=== PATIENT | female | born 1965 | race Caucasian/White ===

== ENCOUNTER → 2023-12-18 06:55 | Outpatient (REF) | payer OTHER, SELFPAY | LOC: RAD 06:55 | PROVIDERS: ATTENDING PHYSICIAN Internal Medicine Critical Care Medicine; FAMILY PHYSICIAN Nurse Practitioner | DX: R05.3 Chronic cough (principal); M32.9 Systemic lupus erythematosus, unspecified | CPT/HCPCS: 71250 ==

== ENCOUNTER → 2023-12-27 14:26 | Outpatient (REF) | payer OTHER, SELFPAY | LOC: PAVMRI 14:26 | PROVIDERS: ATTENDING PHYSICIAN Student in an Organized Health Care Education/Training Program; FAMILY PHYSICIAN Nurse Practitioner | DX: I63.9 Cerebral infarction, unspecified (principal) | CPT/HCPCS: 70544; 70549; A9585 ==

== ENCOUNTER → 2024-03-06 09:57 | Outpatient (REF) | payer OTHER, SELFPAY | LOC: WDC 09:57 | PROVIDERS: ATTENDING PHYSICIAN Nurse Practitioner Adult Health; FAMILY PHYSICIAN Nurse Practitioner | DX: N63.10 Unspecified lump in the right breast, unspecified quadrant (principal) | CPT/HCPCS: 76642; 77062; 77066 ==

== ENCOUNTER → 2024-05-12 07:54 | Outpatient (REF) | payer OTHER, SELFPAY | LOC: WDC 07:54 | PROVIDERS: ATTENDING PHYSICIAN Nurse Practitioner Adult Health; FAMILY PHYSICIAN Nurse Practitioner | DX: R92.8 Other abnormal and inconclusive findings on diagnostic imaging of breast (principal) | CPT/HCPCS: 76642 ==

== ENCOUNTER → 2024-06-27 08:20 | Outpatient (REF) | payer OTHER, SELFPAY ==
[2024-06-27 06:00] VITALS: BMI 40.1
[2024-06-27 08:59] VITALS: BP 117/68; BP_SYST 97
[2024-06-27] MEDS: VANCOCIN 200 IV (10:55)
[2024-06-27 11:40] VITALS: BP 115/63; BP_SYST 90
== END ==
LOC: RADI 08:20
PROVIDERS: ATTENDING PHYSICIAN Internal Medicine Rheumatology; FAMILY PHYSICIAN Nurse Practitioner
DX: M06.9 Rheumatoid arthritis, unspecified (principal)
CPT/HCPCS: 36561; 76937; 77001; 99152; 99153; C1788

== ENCOUNTER 2024-08-04 08:27 | Day surgery (SDC) | payer OTHER, SELFPAY ==
[2024-08-04 08:47] VITALS: BP 114/65
[2024-08-04 08:53] VITALS: BP 114/65
[2024-08-04 09:16] VITALS: BMI 41.5
[2024-08-04 11:53] VITALS: BP 110/64
[2024-08-04 12:08] VITALS: BP 104/51
[2024-08-04 12:22] VITALS: BP 113/63
--- NOTE | 2024-08-04 12:24 | ITS.CL.IMPLP ---
[facility] - Implant Loop
Implant Loop
Procedure Report:
LINQ IMPLANTED MONITOR REMOVAL
Date of Procedure: 08/04/24
Primary Care Provider: MARIUSZ Bhakta
Primary fruit press operator: Dr Partha Holguin
PROCEDURES:
1. Removal of implanted loop recorder
INDICATION FOR PROCEDURE:
1. Loop Recorder at end of battery longevity
After informed consent was obtained,'time out' was called and confirmed, the patient was prepped and draped in a sterile fashion.
SEDATION: Via the anesthesia department with conscious sedation
Lidocaine with epi was used for local anesthesia. An incision was made along the prior incision and the Linq monitor was carefully dissected from the pocket. The pocket was liberally irrigated with antibiotic solution. The pocket was closed in
the typical fashion.
COMPLICATIONS:
None
CONCLUSIONS:
1. Removal of implanted loop recorder.
RECOMMENDATIONS:
In-Office wound check in 7-14 days.
Copy to:
MARIUSZ Bhakta
Dr Partha Holguin
== END 2024-08-04 12:53 | disposition home or self-care (01) ==
LOC: CATH 08:27
PROVIDERS: ATTENDING PHYSICIAN Internal Medicine Cardiovascular Disease; FAMILY PHYSICIAN Nurse Practitioner; OTHER PHYSICIAN Nuclear Medicine Nuclear Cardiology
DX: Z09 Encounter for follow-up examination after completed treatment for conditions other than malignant neoplasm (principal); Z86.73 Personal history of transient ischemic attack (TIA), and cerebral infarction without residual deficits; I10 Essential (primary) hypertension; E78.5 Hyperlipidemia, unspecified; K21.9 Gastro-esophageal reflux disease without esophagitis; Z79.82 Long term (current) use of aspirin
CPT/HCPCS: 33286

== ENCOUNTER → 2024-09-05 07:13 | Outpatient (REF) | payer MEDICARE, OTHER, SELFPAY ==
[2024-09-05 08:11] LABS: % Basophils 1.9 % (0-2); % Eosinophils 8.7 % (0-6); % Immature Granulocytes 0.4 % (0-0.5); % Lymphocytes 28.4 % (20.5-51.1); % Monocytes 18.9 % (1.7-9.3); % Neutrophils 41.7 % (42.2-75.2); Absolute Basophils 0.1 10^3/uL (0-0.2); Absolute Eosinophils 0.2 10^3/uL (0-0.7); Absolute Lymphocytes 0.8 10^3/uL (1.2-3.4); Absolute Monocytes 0.5 10^3/uL (0.1-0.6); Absolute Neutrophils 1.1 10^3/uL (1.4-6.5); Hematocrit 40.9 % (37.0-47.0); Hemoglobin 14.3 g/dL (12.0-16.0); Mean Corpuscular Hgb 33.4 pg (27.0-31.0); Mean Corpuscular Volume 95.6 fL (81.0-99.0); Mean Platelet Volume 9.1 fL (7.4-10.4); Nucleated Red Blood Cells % 0 %; Platelet Count 189 10^3/uL (130-400); Red Blood Cell Count 4.28 10^6/uL (4.20-5.40); Red Cell Dist. Width 13.1 % (11.5-14.5); White Blood Cell Count 2.6 10^3/uL (4.8-10.8)
[2024-09-05 08:54] LABS: C-Reactive Protein < 5.00 mg/L (0.0-10.00)
[2024-09-05 08:57] LABS: ALT (SGPT) 32 U/L (0-35); AST (SGOT) 26 U/L (14-36); Alkaline Phosphatase 67 U/L (38-126); Blood Urea Nitrogen 23 mg/dl (7-17); Calcium 9.2 mg/dl (8.4-10.2); Carbon Dioxide 26 mmol/L (22-30); Chloride 106 mmol/L (98-107); Glucose 98 mg/dl (70-99); HDL Cholesterol 76 mg/dl; LDL Cholesterol, Calculated 89 mg/dl; Potassium 4.1 mmol/L (3.5-5.1); Sodium 141 mmol/L (135-145); Total Bilirubin 0.8 mg/dl (0.2-1.3); Total Cholesterol 190 mg/dl (50-199); Total Protein 6.4 g/dl (6.3-8.2); Triglyceride 126 mg/dl (10-149); Very Low Density Lipoprotein 25 mg/dl (0-30); eGFR > 60.00
[2024-09-05 09:00] LABS: Erythrocyte Sed Rate 8 mm/hour (0-20)
[2024-09-07 07:38] LABS: ANA, IgG Reflex to HEp-2 None Detected (None Detected)
[2024-09-07 15:58] LABS: IgE 55 kU/L (<=214)
[2024-09-07 15:59] LABS: Aspergillus fumigatus <0.10 kU/L (<=0.34); Bermuda Grass <0.10 kU/L (<=0.34); Birch Tree <0.10 kU/L (<=0.34); Box Elder/Maple Tree <0.10 kU/L (<=0.34); Cat Epithelium/Dander <0.10 kU/L (<=0.34); Common Pigweed <0.10 kU/L (<=0.34); Common/Short Ragweed <0.10 kU/L (<=0.34); Cottonwood Tree <0.10 kU/L (<=0.34); Dermatophagoides farinae <0.10 kU/L (<=0.34); Dermatophagoides pteronyssinus <0.10 kU/L (<=0.34); Dog Dander <0.10 kU/L (<=0.34); Elm Tree <0.10 kU/L (<=0.34); German Cockroach <0.10 kU/L (<=0.34); Hormodendrum <0.10 kU/L (<=0.34); IgE 55 kU/L (<=214); Mountain Cedar Tree <0.10 kU/L (<=0.34); Mouse Epithelium <0.10 kU/L (<=0.34); Mucor racemosus <0.10 kU/L (<=0.34); Mugwort Weed <0.10 kU/L (<=0.34); Oak Tree <0.10 kU/L (<=0.34); Penicillium notatum <0.10 kU/L (<=0.34); Sheep Sorrel Weed <0.10 kU/L (<=0.34); Sycamore Tree <0.10 kU/L (<=0.34); Timothy Grass 0.11 kU/L (<=0.34); Walnut Tree <0.10 kU/L (<=0.34); White Ash Tree <0.10 kU/L (<=0.34); White Mulberry Tree <0.10 kU/L (<=0.34)
[2024-09-07 17:14] LABS: ds-DNA Ab, IgG Reflex To Titer 3 IU (0-24)
[2024-09-07 18:56] LABS: Quantiferon Mitogen minus NIL 4.53 IU/mL; Quantiferon NIL 0.06 IU/mL; Quantiferon TB Gold Plus Negative (Negative)
[2024-09-08 07:26] LABS: Complement C3 99 mg/dl (88-165)
== END ==
LOC: REG 07:13
PROVIDERS: ATTENDING PHYSICIAN Nuclear Medicine Nuclear Cardiology; FAMILY PHYSICIAN Nurse Practitioner; OTHER PHYSICIAN Internal Medicine Rheumatology; REFERRING PHYSICIAN Internal Medicine Critical Care Medicine
DX: M06.09 Rheumatoid arthritis without rheumatoid factor, multiple sites (principal); M25.511 Pain in right shoulder; M32.9 Systemic lupus erythematosus, unspecified; M62.81 Muscle weakness (generalized); M70.61 Trochanteric bursitis, right hip; M79.7 Fibromyalgia; Z51.81 Encounter for therapeutic drug level monitoring; Z86.73 Personal history of transient ischemic attack (TIA), and cerebral infarction without residual deficits; I10 Essential (primary) hypertension; R60.0 Localized edema; E78.5 Hyperlipidemia, unspecified; J45.909 Unspecified asthma, uncomplicated
CPT/HCPCS: 36415; 80053; 80061; 82785; 85025; 85652; 86003; 86038; 86140; 86160; 86225; 86480

== ENCOUNTER → 2024-11-04 07:37 | Outpatient (REF) | payer MEDICARE, OTHER, SELFPAY | LOC: WDC 07:37 | PROVIDERS: ATTENDING PHYSICIAN Nurse Practitioner Adult Health; FAMILY PHYSICIAN Nurse Practitioner | DX: R92.8 Other abnormal and inconclusive findings on diagnostic imaging of breast (principal) | CPT/HCPCS: 76642 ==

== ENCOUNTER 2024-12-16 02:54 | Inpatient (IN) | payer MEDICARE, OTHER, SELFPAY ==
[2024-12-15 17:09] VITALS: BP 195/124
--- NOTE | 2024-12-15 17:10 | ED.GENMED ---
ED Provider Triage
<John Izaguirre PA-C - Last Filed: 12/15/24 17:11>
-
Patient seen by provider in Triage?: Seen in Triage
Attestation: A medical screening examination has been initiated by a qualified medical provider. Based on the assessment performed at this time, it has been determined that an emergent medical condition may exist and the patient has been informed
that further medical evaluation and possible additional diagnostic testing may be needed.
HPI: 59-year-old female presenting to the emergency department for evaluation of lower abdominal pain that has been gradually worsening for about 1 week, associated with constipation. States has attempted [id number] remedies for the pain and
constipation but without any relief. Attempted to see her GI provider however did not hear back from them and was recommended to come to the ER if pain persisted. Patient reports pain is worse in the left lower abdomen. History of diverticular
bleed in the past. Labs and CT imaging ordered.
GENERAL: Alert , in no apparent distress
EYE: No visual abnormalities.
NECK: Trachea midline
ENT: No visible abnormalities.
LUNGS: No acute respiratory distress
NEUROLOGICAL: Alert and oriented
SKIN: Skin intact. No visible changes.
MUSCULOSKELETAL: Moving extremities normally
PSYCH: Normal and appropriate interaction.
This is a medical evaluation conducted in person to initiate diagnostic evaluation and provide initial therapeutics. Please see further documentation by the treating clinician.
History of Present Illness
<John Izaguirre PA-C - Last Filed: 12/15/24 17:11>
General
Chief Complaint: Abdominal Pain
Time Seen by Provider: 12/15/24 21:22
<Janet Luis DO - Last Filed: 12/16/24 00:21>
History of Present Illness
History of Present Illness:
59-year-old female with history of IBS, rheumatoid arthritis, fibromyalgia, lupus presenting to the emergency room for generalized abdominal pain. Patient reports symptoms for the past week. Does note that she has been constipated. Pain was
initially in the left lower quadrant of the abdomen and suprapubic region. However is now wrapping across the entire abdomen. Denies fever. Denies nausea or vomiting. Denies any history of abdominal surgeries in the past. Denies chest pain or
difficulty breathing. Does note rectal discomfort, particularly with sitting. Denies additional acute medical complaints
Past History
<John Izaguirre PA-C - Last Filed: 12/15/24 17:11>
Past History
ED Past Medical History: Asthma, GERD, HTN and Other (Fibromyalgia, elevated heart rate, GERD)
ED Past Surgical History: Other (Cellulitis release, right and left)
Social History
Tobacco: Non-smoker
Alcohol: None
Drug: None
Personal:
Living: with family
Phy Exam
<Janet Luis DO - Last Filed: 12/16/24 00:21>
Physical Exam
Physical Exam:
General: Well-appearing, no clinical signs of dehydration, nontoxic and in no acute distress
HEENT: protecting airway
Neck: appears supple
CV: Normal heart rate, regular rhythm
Resp: No accessory muscle use, no increased work of breathing, lungs clear to auscultation bilaterally
Abd: No distention, generalized nonfocal tenderness, no rebound or guarding
Extremities: No deformities, no swelling
Neuro: alert, no focal neurologic deficit
: deferred
Rectal: deferred
Psych: Normal affect
Skin: Intact
Course
<John Izaguirre PA-C - Last Filed: 12/15/24 17:11>
Orders/Labs/Results
Orders:
Orders
12/15/24 17:10
CT Abd/pelvis W Iv Cont Urgent
Comment:
Reason For Exam: lower abd pain/rectal pain. hx diverticulitis
Urinalysis Reflex To Culture Urgent
12/15/24 18:03
Complete Blood Count/With Diff Urgent
Comprehensive Metabolic Panel Urgent
Lipase Urgent
12/15/24 22:18
Ketorolac [Toradol] 15 mg IV NOW STA
12/15/24 22:29
Alteplase [Cathflo/Activase] 2 mg INTRACATH NOW STA
12/16/24 00:13
Amoxicillin 875 mg/Clav 125 mg [Augmentin 875 mg/125 mg] 1 tablet PO NOW STA
Morphine Sulfate 4 mg IV NOW STA
12/16/24 00:15
Heparin Pf [Heparin Lock Flush] 500 unit .ROUTE .STK-MED ONE
12/16/24 00:18
Piperacillin/Tazo 4.5 Gram [Zosyn] 4.5 gram in 100 ml IV NOW
Abnormal Lab Results
12/15/24
18:03
Hgb 16.6 H g/dL
(12.0-16.0)
Hct 48.8 H %
(37.0-47.0)
MCH 31.6 H pg
(27.0-31.0)
Absolute Lymphs (auto) 0.7 L 10^3/uL
(1.2-3.4)
Neutrophils % 82.9 H %
(42.2-75.2)
Lymphocytes % 10.7 L %
(20.5-51.1)
Glucose 152 H mg/dl
(70-99)
ALT 38 H U/L
(0-35)
12/15/24 18:03
12/15/24 18:03
Vital Signs
Initial and Last Documented VS:
Initial Vital Signs
Temp Pulse Resp BP Pulse Ox
98.1 F 106 20 195/124 99
12/15/24 17:09 12/15/24 17:09 12/15/24 17:09 12/15/24 17:09 12/15/24 17:09
Last Documented Vital Signs
Temp Pulse Resp BP Pulse Ox
98.9 F 102 18 178/103 97
12/15/24 19:00 12/15/24 19:00 12/15/24 21:42 12/15/24 19:00 12/15/24 19:00
<Janet Luis, DO - Last Filed: 12/16/24 00:21>
Orders/Labs/Results
Orders:
Orders
12/15/24 17:10
CT Abd/pelvis W Iv Cont Urgent
Comment:
Reason For Exam: lower abd pain/rectal pain. hx diverticulitis
Urinalysis Reflex To Culture Urgent
12/15/24 18:03
Complete Blood Count/With Diff Urgent
Comprehensive Metabolic Panel Urgent
Lipase Urgent
12/15/24 22:18
Ketorolac [Toradol] 15 mg IV NOW STA
12/15/24 22:29
Alteplase [Cathflo/Activase] 2 mg INTRACATH NOW STA
12/16/24 00:13
Amoxicillin 875 mg/Clav 125 mg [Augmentin 875 mg/125 mg] 1 tablet PO NOW STA
Morphine Sulfate 4 mg IV NOW STA
12/16/24 00:15
Heparin Pf [Heparin Lock Flush] 500 unit .ROUTE .STK-MED ONE
12/16/24 00:18
Piperacillin/Tazo 4.5 Gram [Zosyn] 4.5 gram in 100 ml IV NOW
Abnormal Lab Results
12/15/24
18:03
Hgb 16.6 H g/dL
(12.0-16.0)
Hct 48.8 H %
(37.0-47.0)
MCH 31.6 H pg
(27.0-31.0)
Absolute Lymphs (auto) 0.7 L 10^3/uL
(1.2-3.4)
Neutrophils % 82.9 H %
(42.2-75.2)
Lymphocytes % 10.7 L %
(20.5-51.1)
Glucose 152 H mg/dl
(70-99)
ALT 38 H U/L
(0-35)
12/15/24 18:03
12/15/24 18:03
Vital Signs
Initial and Last Documented VS:
Initial Vital Signs
Temp Pulse Resp BP Pulse Ox
98.1 F 106 20 195/124 99
12/15/24 17:09 12/15/24 17:09 12/15/24 17:09 12/15/24 17:09 12/15/24 17:09
Last Documented Vital Signs
Temp Pulse Resp BP Pulse Ox
98.9 F 102 18 178/103 97
12/15/24 19:00 12/15/24 19:00 12/15/24 21:42 12/15/24 19:00 12/15/24 19:00
<Janet Luis DO - Last Filed: 12/16/24 00:21>
MDM/Problems Addressed
MDM/Problems Addressed:
59-year-old female with history of fibromyalgia, rheumatoid arthritis, lupus, IBS presenting for lower abdominal pain. Vital signs on arrival are significant for high blood pressure.
On exam patient is resting comfortably, no acute distress. However generalized tenderness to lower abdomen, no rebound or guarding. Passively rule out acute intra-abdominal process such as obstruction versus infection. Flare of IBS is also
consideration. Plan for laboratory analysis and CT abdominal imaging. Toradol administered for pain
00:10 -CT shows acute diverticulitis with extraluminal air. No abscess formation. Given high risk nature, plan for IV antibiotics and admission. Morphine administered for pain. Patient agreeable to plan
<Janet Luis DO - Last Filed: 12/16/24 00:21>
*Critical Care Note
Total Time (30-74mins, 75-104mins- exclusive of procedures): Not Applicable
ED Attending Note
<John Izaguirre PA-C - Last Filed: 12/15/24 17:11>
-
Portions of this chart may have been created with voice recognition software.� Occasional wrong word or��sound alike� substitutions may have occurred due to the inherent limitations of voice recognition software.
Discharge Plan
Departure
Prescriptions:
No Action
pantoprazole 40 MG tablet,delayed release (DR/EC)
40 mg PO DAILY Qty: 30 0RF
Savella 100 MG tablet
200 mg PO BID
budesonide 0.5 mg/2 mL Suspension For Nebulization
0.5 mg INHALATION R DAILYPRN PRN (Reason: sob)
Patient Comments:
mixes with ipratropium
montelukast 10 mg Tablet
10 mg PO QPM
timolol maleate 0.5 % gel forming solution
1 drp BOTH EYES DAILY
aspirin 81 mg Tablet
81 mg PO QPM
Actemra 200 mg/10 mL (20 mg/mL) Solution
200 mg IV Q4W
atorvastatin 80 MG tablet
40 mg PO QPM
Referrals:
Chioma Levy CRNP [Family Provider] -
Interventions
Interventions:
*Risk Screen - Suicide Last Done: 12/15/24 22:04
*General Assessment Last Done: 12/15/24 17:09
*Neglect/Abuse Screening Last Done: 12/15/24 22:04
*ED COVID-19 Vaccine History Last Done: 12/15/24 21:41
UG-Tsgiri-Zgtqenqoao Assessment Last Done: 12/15/24 21:41
Discharge Date and Time
Print Language: TONGAN
[2024-12-15 18:28] LABS: % Basophils 0.2 % (0-2); % Immature Granulocytes 0.3 % (0-0.5); % Lymphocytes 10.7 % (20.5-51.1); % Monocytes 5.9 % (1.7-9.3); % Neutrophils 82.9 % (42.2-75.2); Absolute Lymphocytes 0.7 10^3/uL (1.2-3.4); Absolute Monocytes 0.4 10^3/uL (0.1-0.6); Absolute Neutrophils 5.3 10^3/uL (1.4-6.5); Hematocrit 48.8 % (37.0-47.0); Hemoglobin 16.6 g/dL (12.0-16.0); Mean Corpuscular Hgb 31.6 pg (27.0-31.0); Mean Corpuscular Volume 92.8 fL (81.0-99.0); Mean Platelet Volume 9.1 fL (7.4-10.4); Nucleated Red Blood Cells % 0 %; Platelet Count 200 10^3/uL (130-400); Red Blood Cell Count 5.26 10^6/uL (4.20-5.40); Red Cell Dist. Width 12.8 % (11.5-14.5); White Blood Cell Count 6.4 10^3/uL (4.8-10.8)
[2024-12-15 18:37] LABS: ALT (SGPT) 38 U/L (0-35); AST (SGOT) 33 U/L (14-36); Albumin 4.8 g/dl (3.5-5.0); Alkaline Phosphatase 72 U/L (38-126); Blood Urea Nitrogen 16 mg/dl (7-17); Calcium 9.4 mg/dl (8.4-10.2); Carbon Dioxide 22 mmol/L (22-30); Chloride 104 mmol/L (98-107); Glucose 152 mg/dl (70-99); Lipase 267 U/L (23-300); Potassium 4.1 mmol/L (3.5-5.1); Sodium 138 mmol/L (135-145); Total Protein 7.3 g/dl (6.3-8.2); eGFR > 60.00
[2024-12-15 19:00] VITALS: BP 178/103
[2024-12-15] MEDS: TORADOL 15 MG IV (22:22)
[2024-12-15] MEDS: CATHFLO/ACTIVASE 2 MG INTRACATH (23:10)
--- NOTE | 2024-12-15 23:40 | VATNOTE ---
2300-CONFIRMED LACK OF BR FROM R SUBQ PP. CAATHFLO INSTILLED PER PROTOCOL. PCN AWARE ON INTERVENTION AND PLAN OF CARE WELL PT AND AT BEDSIDE.
[2024-12-16] MEDS: MORPHINE SULFATE 4 MG IV (00:17)
[2024-12-16] MEDS: ZOSYN 100 IV (00:28)
--- NOTE | 2024-12-16 00:42 | VATNOTE ---
0040-RETURNED TO ASPIRATE CATHFLO FROM PRT-PCN HAD ALREADY ASPIRATED CATHFLO AND CONFIRMED A BRISK BR. IVF INFUSING ORDERED.
--- NOTE | 2024-12-16 02:44 | HPS.HSE ---
Family Physician
-
Family Physician: MARIUSZ Villa
Chief Complaint
-
Abd Pain
History of Present Illness
Patient is a 59y F with PMH significant for RA, lupus asthma and prior CVA who presents to ED complaining of abdominal pain. Patient states that she started with low back pain early last week. She developed change in consistency / shape of
stools on and noted development of LLQ abdominal pain on Sunday. Symptoms have increased throughout the weekend. No fevers / chills, N/V/D, urinary complaints. No prior history of similar symptoms.
Patient is on infusions of Actemra and Fasenra (received this dose earlier today).
Medical History
Past Medical History
Past Medical History: Reports Other
Additional Past Medical History:
ASCVD / CVA
Hypertension
Rheumatoid Arthritis
Lupus
Asthma
TED on CPAP
Past Surgical History: Reports Other
Additional Past Surgical History:
Lumbar Fusion
Bilateral TKA
Trigger Finger
Port Placement
Social History
Tobacco: Non-smoker
Alcohol: None
Drug: None
Family History
Family History: Not pertinent
Allergies / Home Medications
Allergies reflects when Allergies were last updated in [facility].
Home Medications with original date entered in [facility]
Allergy/Medication List:
Allergies
Allergy/AdvReac Type Severity Reaction Status Date / Time
cefadroxil [From Duricef] Allergy Rash Verified 12/15/24 17:09
celecoxib [From Celebrex] Allergy Rash Verified 12/15/24 17:09
latex Allergy Rash, Verified 12/15/24 17:09
itching
pollen extracts Allergy stuffy nose Verified 12/15/24 17:09
Sulfa (Sulfonamide Allergy Rash Verified 12/15/24 17:09
Antibiotics)
sulfur dioxide Allergy Rash Verified 12/15/24 17:09
tramadol HCl [From Ultracet] Allergy Pharmacy Verified 12/15/24 17:09
to Review
Home Medications
budesonide 0.5 mg/2 mL suspension for nebulization 0.5 mg inhalation R DAILYPRN PRN sob 02/26/23
montelukast 10 mg tablet 10 mg PO QPM asthma 02/26/23
timolol maleate 0.5 % eye gel forming solution 1 drp BOTH EYES DAILY Eye Condition 04/24/23
aspirin 81 mg tablet 81 mg PO QPM 06/27/24
tocilizumab 200 mg/10 mL (20 mg/mL) intravenous solution (Actemra) 200 mg IV Q4W 06/27/24
atorvastatin 80 mg tablet 40 mg PO QPM 08/04/24
erythromycin 250 mg tablet 250 mg PO MOWEFR 12/16/24
hydroxychloroquine 200 mg tablet (Plaquenil) 200 mg PO BID 12/16/24
Review of Systems
-
History Source: Patient
A 12 point ROS was completed and negative except as noted: Yes
Constitutional: Denies Fever or Chills
Respiratory: Denies Cough or Trouble Breathing
Cardiac: Reports Chest Pain; Denies Palpitations
Abdomen/GI: Reports Abdominal Pain; Denies Nausea, Vomiting, Diarrhea, Constipated, Bloody Stools or Black Stools
: Denies Dysuria, Frequency or Flank Pain
Musculoskeletal: Denies Joint Pain or Edema
Neurological: Denies Dizzy or Headache
Physical Exam
Vital Signs
Vital Signs
Temp Pulse Resp BP Pulse Ox
98.9 F 102 18 178/103 97
12/15/24 19:00 12/15/24 19:00 12/15/24 21:42 12/15/24 19:00 12/15/24 19:00
Physical Exam
General: Other (59y F in mild distress due to abdominal pain.)
HEENT: Moist mucous membranes and PERRLA
Respiratory: Clear; No Wheezes, Rales or Rhonchi
Cardiac: S1/S2 and Regular Rhythm; No Murmur
GI: Soft, Non Distended and Other (Diffusely / mildly tender without rebound / guarding. Pos BS.)
Musculoskeletal: No Clubbing, No Cyanosis and No Edema
Neuro: AO x 3
Laboratory Results
-
12/15/24 18:03
12/15/24 18:03
Laboratory Results
Total Bilirubin 1.0 mg/dl (0.2-1.3) 12/15/24 18:
AST 33 U/L (14-36) 12/15/24 18:
ALT 38 U/L (0-35) H 12/15/24 18:
Alkaline Phosphatase 72 U/L (38-126) 12/15/24 18:
Lipase 267 U/L (23-300) 12/15/24 18:03
Impression/Plan
-
A/P: Patient is a 59y F with PMH significant for RA / Lupus on chronic immunosuppressants who presents to ED complaining of abdominal pain x several days.
Acute Sigmoid Diverticulitis
- Admit for further evaluation and treatment.
- IV abx, IVFs, pain control, etc.
- Colorectal Surgery evaluation.
- Follow for clinical improvement.
Benign Hypertension
- Elevated BP in the ED likely in part due to pain / discomfort.
- Pursue pain control as noted above.
- IV hydralazine as needed for very high BP.
- May need oral regimen if hypertension persists (was on BP medications years ago).
Rheumatoid Arthritis
Lupus
- Stable. On outpatient infusions / injections.
- Continue current Plaquenil.
- Follow for any changes.
Asthma
- Stable. No acute exacerbation.
Obesity due to excess calories
- Affects all aspects of care.
- Encourage healthy diet and increased activity with goal of weight loss.
DVT Prophylaxis: SCDs
Code Status: Full
[2024-12-16] MEDS: DILAUDID 0.5 MG IV ×5 (03:32→23:33)
[2024-12-16 03:48] VITALS: BP 126/79
[2024-12-16] MEDS: LR 1000 IV ×3 (03:52→22:54)
[2024-12-16 07:11] LABS: Hematocrit 42.4 % (37.0-47.0); Hemoglobin 14.7 g/dL (12.0-16.0); Mean Corp Hgb Conc. 34.7 g/dL (33.0-37.0); Mean Corpuscular Hgb 32.7 pg (27.0-31.0); Mean Corpuscular Volume 94.2 fL (81.0-99.0); Mean Platelet Volume 8.9 fL (7.4-10.4); Platelet Count 159 10^3/uL (130-400); White Blood Cell Count 9.6 10^3/uL (4.8-10.8)
[2024-12-16 07:23] LABS: Blood Urea Nitrogen 17 mg/dl (7-17); Calcium 8.4 mg/dl (8.4-10.2); Carbon Dioxide 27 mmol/L (22-30); Chloride 104 mmol/L (98-107); Glucose 120 mg/dl (70-99); Potassium 3.7 mmol/L (3.5-5.1); Sodium 140 mmol/L (135-145); eGFR > 60.00
[2024-12-16 07:24] LABS: Troponin I < 0.012 ng/ml
[2024-12-16] MEDS: PLAQUENIL 200 MG PO ×2 (09:51→13:12)
[2024-12-16] MEDS: LOW STRENGTH ASPIRIN 81 MG PO (09:51)
[2024-12-16] MEDS: TIMOPTIC 0.5% OPHTHALMIC SOLUTION 1 DROP BOTH EYES ×2 (10:00→19:34)
--- NOTE | 2024-12-16 10:06 | CON.CRS ---
Consultation
-
Date/Time Consultation Requested: 12/16/2024, 03:14
Date/Time Consultation Performed: 12/16/2024, 08:30
Requesting Provider: Khadar Lee DO
Performing Provider: [place] MD
Reason for Consultation: diverticulitis
Medical History
-
Chief Complaint: abdominal pain
History of Present Illness:
59-year-old female with history of lupus and rheumatoid arthritis presents to [facility] yesterday evening complaining of abdominal pain. The patient states that she had symptoms of lower abdominal pain for the past several days which worsened
throughout last weekend. She was in so much pain yesterday that her called the ambulance. Her stools have become more pencillike and quality recently and she has been experiencing extreme rectal pressure as well as bilateral lower
abdominal pain. She denies fevers or chills. She denies nausea or vomiting. She has not had a bowel movement in the past 24 hours.
Due to lupus and rheumatoid arthritis, she is currently on infusions of Actemra and Fasenra. Her last doses were early yesterday.
She has a prior history of a diverticular hemorrhage in 2022 and underwent a NOREEN arterial graft a by IR which showed a small area of hyperemia at the junction of the descending and sigmoid colon likely corresponding with prior bleeding. However,
due to no active extravasation, it was not coiled. At that time she had been on Plavix. She then underwent a colonoscopy following the IR procedure by Dr. Riggs which showed diverticulosis in the sigmoid colon with no evidence of bleeding. She
was then discharged.
The patient denies a prior history of diverticulitis in the past. She has undergone no abdominal surgery. Currently she is only on aspirin [address] of the abdomen and pelvis shows diverticulitis involving the sigmoid colon and the central pelvis with adjacent foci of contained extraluminal air in the pelvis with no evidence for abscess and no evidence of free intraperitoneal air. Her WBC
was 6.4 on arrival and is 9.6 today. She remains afebrile and her vitals are normal. Given the above findings complicated with use of immunologic's, we have been consulted for further surgical opinion.
Past Medical History
Past Medical History: Other (Lupus, rheumatoid arthritis, CVA, hypertension, asthma, obstructive sleep apnea)
Past Surgical History: Other (Lumbar fusion, bilateral TKA,'s finger surgery repair, port placement)
Social History
Tobacco: Non-Smoker
Alcohol: None
Drug: None
Family History
Family History: Reviewed & Not Pertinent
Allergies / Home Medications
Allergy/AdvReac Type Severity Reaction Status Date / Time
cefadroxil [From Duricef] Allergy Rash Verified 12/15/24 17:09
celecoxib [From Celebrex] Allergy Rash Verified 12/15/24 17:09
latex Allergy Rash, Verified 12/15/24 17:09
itching
pollen extracts Allergy stuffy nose Verified 12/15/24 17:09
Sulfa (Sulfonamide Allergy Rash Verified 12/15/24 17:09
Antibiotics)
sulfur dioxide Allergy Rash Verified 12/15/24 17:09
tramadol HCl [From Ultracet] Allergy Pharmacy Verified 12/15/24 17:09
to Review
�Medication �Instructions �Recorded �Confirmed �Type
budesonide 0.5 mg/2 mL suspension 0.5 mg inhalation R DAILYPRN PRN 02/26/23 12/16/24 History
for nebulization sob
montelukast 10 mg tablet 10 mg PO QPM asthma 02/26/23 12/16/24 History
timolol maleate 0.5 % eye gel 1 drp BOTH EYES DAILY Eye Condition 04/24/23 12/16/24 History
forming solution
aspirin 81 mg tablet 81 mg PO QPM 06/27/24 12/16/24 History
tocilizumab 200 mg/10 mL (20 200 mg IV Q4W 06/27/24 12/16/24 History
mg/mL) intravenous solution
(Actemra)
atorvastatin 80 mg tablet 40 mg PO QPM 08/04/24 12/16/24 History
erythromycin 250 mg tablet 250 mg PO MOWEFR 12/16/24 12/16/24 History
hydroxychloroquine 200 mg tablet 200 mg PO BID 12/16/24 12/16/24 History
(Plaquenil)
Review of Systems
-
History Source: Patient
Abdomen/GI: Abdominal Pain
A 10 point review of systems was completed, and was negative except as per HPI.
Physical Exam
Vital Signs
Temp 98.9 F 12/15/24 19:00
Pulse 90 12/16/24 05:15
Resp Rate 18 12/16/24 05:15
Blood pressure 126/79 12/16/24 03:48
SaO2 97 12/15/24 19:00
12/15/24 12/16/24 12/17/24
06:59 06:59 06:59
Actual Weight 113.5 kg 113.5 kg
Lab Results / Allergies
12/16/24 06:44
12/16/24 06:44
WBC 9.6 10^3/uL (4.8-10.8) 12/16/24 06:44
Hgb 14.7 g/dL (12.0-16.0) 12/16/24 06:44
Hct 42.4 % (37.0-47.0) 12/16/24 06:44
Plt Count 159 10^3/uL (130-400) D 12/16/24 06:44
Abs Immat Gran (auto) 0.0 10^3/uL (0-0.05) 12/15/24 18:03
Neutrophils % 82.9 % (42.2-75.2) H 12/15/24 18:03
Allergy/AdvReac Type Severity Reaction Status Date / Time
cefadroxil [From Duricef] Allergy Rash Verified 12/15/24 17:09
celecoxib [From Celebrex] Allergy Rash Verified 12/15/24 17:09
latex Allergy Rash, Verified 12/15/24 17:09
itching
pollen extracts Allergy stuffy nose Verified 12/15/24 17:09
Sulfa (Sulfonamide Allergy Rash Verified 12/15/24 17:09
Antibiotics)
sulfur dioxide Allergy Rash Verified 12/15/24 17:09
tramadol HCl [From Ultracet] Allergy Pharmacy Verified 12/15/24 17:09
to Review
Physical Exam
General: Well Developed, Well Nourished and No Apparent Distress
GI: Soft and Tender (Left lower quadrant, moderate)
Skin: Warm and Dry
Neuro: AO x 3
Psych: Calm
Data Reviewed
-
CT Scan: Image Personally Visualized and interpreted, Report Reviewed by me and Discussed with Patient
Labs: Labs Reviewed by me, Discussed with Physician and Discussed with Family
Old Records: Reviewed
Assessment / Plan
-
Assessment: 59-year-old female with a significant past medical history for rheumatoid arthritis and lupus currently on immunologic's presents to the ER complaining of lower abdominal pain and found to have sigmoid diverticulitis
Plan:
-No plans for immediate surgery, however, it is worrisome given the tenderness on exam and the use of immunologic's. Will follow exam closely. Discussed with patient that if she worsens, she will require a colectomy with colostomy creation.
-Recommend n.p.o. at this time
-Continue IV fluids
-Continue IV antibiotics
-Will follow
[2024-12-16] MEDS: ZOSYN 50 IV ×3 (10:54→21:28)
[2024-12-16 11:32] LABS: Urine Albumin Trace (Neg - Trace); Urine Bilirubin Negative (Negative); Urine Character Clear (Clear); Urine Color Yellow; Urine Glucose Negative (Negative); Urine Ketone Trace (Negative); Urine Leukocyte Trace (Negative); Urine Nitrite Negative (Negative); Urine Occult Blood Negative (Negative); Urine Urobilinogen Negative (Neg - 1+)
[2024-12-16 12:07] VITALS: BP 120/82
[2024-12-16 13:32] LABS: Urine Squamous Cell 16-20 /LPF (Few)
[2024-12-16 13:33] LABS: Urine Red Blood Cell 0-2 /HPF (0-2); Urine White Cell 0-2 /HPF (0-5)
--- NOTE | 2024-12-16 14:54 | W.PN.UPDATE ---
Update Note
Progress Note Update
Clears, IV fluids, IV antibiotics
Conservative care for now
Colorectal surgery recommendations, if does not improve then will need sigmoidectomy with colostomy
[2024-12-16] MEDS: LIPITOR 40 MG PO (18:23)
[2024-12-16] MEDS: SINGULAIR 10 MG PO (18:23)
[2024-12-16 18:29] VITALS: BP 110/94
[2024-12-16 22:30] VITALS: BP 157/104
--- NOTE | 2024-12-16 23:58 | PTCARENOTE ---
22:20pt rec;vd from ER,aaox3,ambulates to restroom +void. RCW SQ port with LR infusing at 100ml/hr,tele applied, oriented to unit.
[2024-12-17 01:34] VITALS: BP 102/50
[2024-12-17] MEDS: ZOSYN 50 IV ×4 (03:20→21:55)
[2024-12-17] MEDS: DILAUDID 0.5 MG IV ×3 (03:27→20:23)
--- NOTE | 2024-12-17 04:25 | VATNOTE ---
PT WITH AREA OF REDNESS AND SLIGHTLY RAISED SMALL RED PATCHES BENEATH LATERAL ASPECT OF PRT DRSG. PT REPORTS HAVING VERY SENSITIVE SKIN AND ISSUES WITH DRSGS AND TAPE. RD PER PROTOCOL WITH SKIN BARRIER AND SURESITE DRSG, AVOIDING AFFECTED AREA
MUCH POSSIBLE. PT REPORTS SOME IMPROVEMENT IN HER COMFORT. ICE BAG ALSO APPLIED AT PT REQUEST FOR HER COMFORT. VAT TO FOLLOW.
[2024-12-17 04:39] LABS: Hematocrit 41.7 % (37.0-47.0); Hemoglobin 13.9 g/dL (12.0-16.0); Mean Corp Hgb Conc. 33.3 g/dL (33.0-37.0); Mean Corpuscular Volume 95.9 fL (81.0-99.0); Platelet Count 166 10^3/uL (130-400); Red Blood Cell Count 4.35 10^6/uL (4.20-5.40); Red Cell Dist. Width 13.1 % (11.5-14.5); White Blood Cell Count 10.3 10^3/uL (4.8-10.8)
[2024-12-17 05:14] LABS: ALT (SGPT) 24 U/L (0-35); AST (SGOT) 21 U/L (14-36); Albumin 3.4 g/dl (3.5-5.0); Alkaline Phosphatase 66 U/L (38-126); Blood Urea Nitrogen 16 mg/dl (7-17); Calcium 8.3 mg/dl (8.4-10.2); Carbon Dioxide 26 mmol/L (22-30); Chloride 103 mmol/L (98-107); Estimated Creatinine Clearance 88 ml/min; Glucose 106 mg/dl (70-99); Potassium 3.7 mmol/L (3.5-5.1); Sodium 136 mmol/L (135-145); Total Bilirubin 1.3 mg/dl (0.2-1.3); Total Protein 5.7 g/dl (6.3-8.2); eGFR > 60.00
[2024-12-17 07:20] VITALS: BP 153/86
[2024-12-17] MEDS: PLAQUENIL 400 MG PO (08:10)
[2024-12-17] MEDS: LOW STRENGTH ASPIRIN 81 MG PO (08:10)
[2024-12-17] MEDS: TIMOPTIC 0.5% OPHTHALMIC SOLUTION 1 DROP BOTH EYES (08:12)
--- NOTE | 2024-12-17 10:30 | W.PN.CRS1 ---
Today's Communication / Plan
-
full liquids
follow exam
cont IV abx
Assessment/Plan
-
Assessment: 59-year-old female with a significant past medical history for rheumatoid arthritis and lupus currently on immunologic's presents to the ER complaining of lower abdominal pain and found to have sigmoid diverticulitis
Plan:
-No plans for immediate surgery, however, it is worrisome given the tenderness on exam and the use of immunologic's. Will follow exam closely. Discussed with patient that if she worsens, she will require a colectomy with colostomy creation.
-Advance diet to full liquids
-Continue IV fluids
-Continue IV antibiotics
-Will follow
Subjective Data
Subjective Data
Date of Service: December 17, 2024
Patient states she feels 'about the same'. She is not having any gas or bowel movements yet. She is not hungry. She feels like she has lower abdominal pressure.
Objective Data
-
Vital Signs
Temp Pulse Resp BP Pulse Ox
98.2 F 101 16 153/86 96
12/17/24 07:20 12/17/24 07:20 12/17/24 07:20 12/17/24 07:20 12/17/24 07:20
Intake & Output
12/16/24 12/17/24 12/18/24
06:59 06:59 06:59
Intake Total 400 / 400 1070 / 1070 480 / 480
Balance 400 / 400 1070 / 1070 480 / 480
Intake:
Oral fluids 120 / 120 480 / 480
IV fluids (Total) 300 / 300 900 / 900
LR 300 / 300
IV piggybacks 100 / 100 50 / 50
LR 100 / 100
Other:
Number of unmeasured voidings 2
Number of approximated SMALL 2
amounts of urine
Number of approximated MODERATE 3
amounts of urine
Lab Results
12/17/24 03:54
12/17/24 03:54
Physical Exam
-
General: No Acute Distress and AOx3
Abdomen: Soft, Non Distended and Tender (Suprapubic)
Skin: Warm and Dry
[2024-12-17] MEDS: LR 1000 IV (10:40)
--- NOTE | 2024-12-17 12:12 | CM ---
Met with pt at bedside
Pt reports she lives with her in a 3 story town home; 3 steps to enter, 12 steps to 2nd fl. + 1/2 bath on FF
Independent at baseline, on disability, drives
DME - CPAP with [employer], nebulizer, wheel chair, rolling walker, single point cane
SNF - no past hx
HH - has had in past - unsure of agency
Has ride at discharge
PCP - Chioma Vaca
Pharm - [facility]
Plan - anticipate home no needs
[2024-12-17 12:15] VITALS: BP 117/73
--- NOTE | 2024-12-17 13:14 | W.PN.HOSP.TC ---
Today's Communication/Plan
-
CLD
IVF, Abx
dvt ppx
Assessment / Plan
Assessment / Plan
Physical Exam
General: Other (59y F in mild distress due to abdominal pain.Improved from yesterday)
HEENT: Moist mucous membranes and PERRLA
Respiratory: Clear; No Wheezes, Rales or Rhonchi
Cardiac: S1/S2 and Regular Rhythm; No Murmur
GI: Soft, Non Distended and Other (Diffusely / mildly tender without rebound / guarding. Improved from yest although still present. Pos BS.)
Musculoskeletal: No Clubbing, No Cyanosis and No Edema
Neuro: AO x 3
A/P: Patient is a 59y F with PMH significant for RA / Lupus on chronic immunosuppressants who presents to ED complaining of abdominal pain x several days.
Acute Sigmoid Diverticulitis
- Admit for further evaluation and treatment.
- IV abx, IVFs, pain control, etc.
- Colorectal Surgery evaluation.
- Follow for clinical improvement. - If no improvement - will need colectomy with colostomy in setting of exam findings and use of Biologics
-Adv to FLD
Benign Hypertension
- Elevated BP in the ED likely in part due to pain / discomfort.
- Pursue pain control as noted above.
- IV hydralazine as needed for very high BP.
- bp under control
Rheumatoid Arthritis
Lupus
- Stable. On outpatient infusions / injections.
- Continue current Plaquenil.
- Follow for any changes.
Asthma
- Stable. No acute exacerbation.
Obesity due to excess calories
- Affects all aspects of care.
- Encourage healthy diet and increased activity with goal of weight loss.
DVT Prophylaxis: HSQ
Code Status: Full
Anticipated Discharge: > 48 hours
Subjective/Interval History
-
Date of Service: December 17, 2024
Pain improved although still present
Objective Data
-
Labs:
Laboratory Results
12/17/24
03:54
WBC 10.3
Hgb 13.9
Hct 41.7
Plt Count 166
Sodium 136
Potassium 3.7
Chloride 103
Carbon Dioxide 26
BUN 16
Creatinine 0.8
Glucose 106 H
Calcium 8.3 L
Total Bilirubin 1.3
AST 21
ALT 24
Alkaline Phosphatase 66
Vital Signs:
Vital Signs
Temp Pulse Resp BP Pulse Ox
98.2 F 87 18 117/73 95
12/17/24 12:15 12/17/24 12:15 12/17/24 12:15 12/17/24 12:15 12/17/24 12:15
I&O
12/16/24 12/17/24 12/18/24
06:59 06:59 06:59
Intake Total 400 / 400 1070 / 1070 480 / 480
Balance 400 / 400 1070 / 1070 480 / 480
Review of Systems
-
History Source: Patient
All other systems: Not reviewed unless documented
Data Reviewed
-
CT Scan: Report Reviewed by me
Labs: Labs Reviewed by me
[2024-12-17] MEDS: TYLENOL 650 MG PO (15:16)
[2024-12-17 15:24] VITALS: BP 138/77
--- NOTE | 2024-12-17 16:55 | PTCARENOTE ---
Pt to be transferred to rm [id number]. Report called to Nuzhat MATHIAS no questions.
[2024-12-17] MEDS: SINGULAIR 10 MG PO (17:09)
[2024-12-17] MEDS: LIPITOR 40 MG PO (17:09)
[2024-12-17 19:57] VITALS: BP 131/77
[2024-12-17] MEDS: HEPARIN 5000 UNITS SC (20:22)
[2024-12-17] MEDS: TIMOPTIC 0.5% OPHTHALMIC SOLUTION BOTH EYES (21:39)
[2024-12-17 23:09] VITALS: BP 130/80
[2024-12-18] VITALS (7 sets, daily range): BP systolic 115–149; BP diastolic 70–87
[2024-12-18] MEDS: TYLENOL 650 MG PO ×3 (02:58→20:43)
[2024-12-18] MEDS: ZOSYN 50 IV ×2 (02:59→10:54)
[2024-12-18] MEDS: DILAUDID 0.5 MG IV ×2 (03:40→08:29)
[2024-12-18 04:57] LABS: Hematocrit 41.4 % (37.0-47.0); Hemoglobin 14.1 g/dL (12.0-16.0); Mean Corp Hgb Conc. 34.1 g/dL (33.0-37.0); Mean Corpuscular Hgb 32.2 pg (27.0-31.0); Mean Corpuscular Volume 94.5 fL (81.0-99.0); Mean Platelet Volume 8.9 fL (7.4-10.4); Platelet Count 165 10^3/uL (130-400); Red Blood Cell Count 4.38 10^6/uL (4.20-5.40); Red Cell Dist. Width 12.8 % (11.5-14.5); White Blood Cell Count 8.2 10^3/uL (4.8-10.8)
[2024-12-18 05:21] LABS: ALT (SGPT) 21 U/L (0-35); AST (SGOT) 23 U/L (14-36); Albumin 3.5 g/dl (3.5-5.0); Alkaline Phosphatase 64 U/L (38-126); Blood Urea Nitrogen 11 mg/dl (7-17); Calcium 8.2 mg/dl (8.4-10.2); Carbon Dioxide 26 mmol/L (22-30); Chloride 105 mmol/L (98-107); Estimated Creatinine Clearance 101 ml/min; Glucose 104 mg/dl (70-99); Potassium 3.9 mmol/L (3.5-5.1); Sodium 138 mmol/L (135-145); Total Bilirubin 1.4 mg/dl (0.2-1.3); Total Protein 5.8 g/dl (6.3-8.2); eGFR > 60.00
[2024-12-18] MEDS: PLAQUENIL 400 MG PO (08:09)
[2024-12-18] MEDS: HEPARIN 5000 UNITS SC ×2 (08:09→20:32)
[2024-12-18] MEDS: LOW STRENGTH ASPIRIN 81 MG PO (08:10)
[2024-12-18] MEDS: TIMOPTIC 0.5% OPHTHALMIC SOLUTION 1 DROP BOTH EYES ×2 (08:16→20:32)
--- NOTE | 2024-12-18 08:44 | W.PN.CRS1 ---
Today's Communication / Plan
-
As below
Assessment/Plan
-
59-year-old female with PMH of rheumatoid arthritis and lupus (on 2 Biologics), CVA, HTN, asthma, TED (on CPAP), who presents with abdominal pain and was found to have diverticulitis with microperforation, being treated nonoperatively
AFVSS
WBC 8.2 from 10.3, Hb stable, CR 0.7
�Acute diverticulitis with microperforation, not improving or worsening
�Due to smoldering course, would attempt bowel rest with n.p.o., okay for p.o. meds and sips/chips
�No need for repeat CT today; no hemodynamic instability or worsening abdominal pain, continue nonoperative measures
�Continue IV antibiotics, recommend switching to IV ertapenem or IV Levaquin/Flagyl
�Continue pain control with Tylenol and Dilaudid as needed
� Continue DVT PPx with subQ heparin, consider switching to Lovenox due to weight
�Encourage OOB/IS
�Appreciate hospitalist
Subjective Data
Subjective Data
Date of Service: December 18, 2024
Not feeling worse but not feeling much better. Has abdominal pain if she moves or gets out of bed.
Denies any N/V, but has no appetite.
Abdominal pain somewhat controlled with pain medicine
Passing little bit of flatus, no BMs. Voiding.
Objective Data
-
Vital Signs
Temp Pulse Resp BP Pulse Ox
98.1 F 85 18 136/70 97
12/18/24 07:30 12/18/24 07:30 12/18/24 07:30 12/18/24 07:30 12/18/24 07:30
Intake & Output
12/17/24 12/18/24 12/19/24
06:59 06:59 06:59
Intake Total 1070 / 1070 1779
Balance 1070 / 1070 1779 / 178
Intake:
Oral fluids 120 / 120 1280 / 1280
IV fluids (Total) 900 / 900 500 / 500
IV piggybacks 50 / 50
Other:
Number of approximated SMALL 2
amounts of urine
Number of approximated MODERATE 4
amounts of urine
Lab Results
12/18/24 04:28
12/18/24 04:28
Physical Exam
-
General: No Acute Distress and AOx3
HEENT: Grossly Normal
Abdomen: Soft, Non Distended (Nondistended, protuberant) and Tender (Mildly to moderately tender in the epigastric region, otherwise minimally tender; no rebound or guarding)
Skin: Warm and Dry
[2024-12-18] MEDS: LR 1000 IV ×2 (09:26→17:13)
--- NOTE | 2024-12-18 13:16 | W.PN.HOSP.TC ---
Today's Communication/Plan
-
can switch to ertapanem
npo
Assessment / Plan
Assessment / Plan
Physical Exam
General: Other (59y F in mild distress due to abdominal pain.Improved from yesterday)
HEENT: Moist mucous membranes and PERRLA
Respiratory: Clear; No Wheezes, Rales or Rhonchi
Cardiac: S1/S2 and Regular Rhythm; No Murmur
GI: Soft, Non Distended and Other (Diffusely / mildly tender without rebound / guarding. Improved from yest although still present. Pos BS.)
Musculoskeletal: No Clubbing, No Cyanosis and No Edema
Neuro: AO x 3
A/P: Patient is a 59y F with PMH significant for RA / Lupus on chronic immunosuppressants who presents to ED complaining of abdominal pain x several days.
Acute Sigmoid Diverticulitis
- Admit for further evaluation and treatment.
- IV abx, IVFs, pain control, etc.
- Colorectal Surgery evaluation.
-no improvement, return back to NPO
-Can attempt to switch to ertapenem although zosyn usually provides good coverage
- Follow for clinical improvement. - If no improvement - will need colectomy with colostomy in setting of exam findings and use of Biologics
Benign Hypertension
- Elevated BP in the ED likely in part due to pain / discomfort.
- Pursue pain control as noted above.
- IV hydralazine as needed for very high BP.
- bp under control
Rheumatoid Arthritis
Lupus
- Stable. On outpatient infusions / injections.
- Continue current Plaquenil.
- Follow for any changes.
Asthma
- Stable. No acute exacerbation.
Obesity due to excess calories
- Affects all aspects of care.
- Encourage healthy diet and increased activity with goal of weight loss.
DVT Prophylaxis: HSQ
Code Status: Full
Anticipated Discharge: Within 24 hours
Subjective/Interval History
-
Date of Service: December 18, 2024
still with persistent pain
Objective Data
-
Labs:
Laboratory Results
12/18/24
04:28
WBC 8.2
Hgb 14.1
Hct 41.4
Plt Count 165
Sodium 138
Potassium 3.9
Chloride 105
Carbon Dioxide 26
BUN 11
Creatinine 0.7
Glucose 104 H
Calcium 8.2 L
Total Bilirubin 1.4 H
AST 23
ALT 21
Alkaline Phosphatase 64
Vital Signs:
Vital Signs
Temp Pulse Resp BP Pulse Ox
98.1 F 83 18 115/75 95
12/18/24 11:30 12/18/24 11:30 12/18/24 11:30 12/18/24 11:30 12/18/24 11:30
I&O
12/17/24 12/18/24 12/19/24
06:59 06:59 06:59
Intake Total 1070 / 1070 1779
Balance 1070 / 1070 1779
Review of Systems
-
History Source: Patient
All other systems: Not reviewed unless documented
Data Reviewed
-
CT Scan: Report Reviewed by me
Labs: Labs Reviewed by me
[2024-12-18] MEDS: INVANZ 60 MG IV (14:06)
[2024-12-18] MEDS: LIPITOR 40 MG PO (17:13)
[2024-12-18] MEDS: SINGULAIR 10 MG PO (17:13)
[2024-12-19] MEDS: LR 1000 IV ×2 (02:11→10:07)
[2024-12-19 06:21] LABS: Hematocrit 39.8 % (37.0-47.0); Hemoglobin 13.6 g/dL (12.0-16.0); Mean Corp Hgb Conc. 34.2 g/dL (33.0-37.0); Mean Corpuscular Hgb 32.3 pg (27.0-31.0); Mean Corpuscular Volume 94.5 fL (81.0-99.0); Mean Platelet Volume 9.2 fL (7.4-10.4); Platelet Count 177 10^3/uL (130-400); Red Blood Cell Count 4.21 10^6/uL (4.20-5.40); Red Cell Dist. Width 12.6 % (11.5-14.5); White Blood Cell Count 6.6 10^3/uL (4.8-10.8)
[2024-12-19 06:55] LABS: ALT (SGPT) 20 U/L (0-35); AST (SGOT) 23 U/L (14-36); Albumin 3.6 g/dl (3.5-5.0); Alkaline Phosphatase 69 U/L (38-126); Blood Urea Nitrogen 13 mg/dl (7-17); Calcium 8.6 mg/dl (8.4-10.2); Carbon Dioxide 21 mmol/L (22-30); Chloride 105 mmol/L (98-107); Estimated Creatinine Clearance 117 ml/min; Glucose 67 mg/dl (70-99); Potassium 3.9 mmol/L (3.5-5.1); Sodium 137 mmol/L (135-145); Total Protein 5.7 g/dl (6.3-8.2); eGFR > 60.00
[2024-12-19] MEDS: HEPARIN 5000 UNITS SC ×2 (07:40→19:51)
[2024-12-19] MEDS: LOW STRENGTH ASPIRIN 81 MG PO (07:40)
[2024-12-19] MEDS: PLAQUENIL 400 MG PO (07:40)
[2024-12-19] MEDS: TIMOPTIC 0.5% OPHTHALMIC SOLUTION 1 DROP BOTH EYES ×2 (07:43→19:51)
[2024-12-19 08:15] VITALS: BP 142/82
--- NOTE | 2024-12-19 11:49 | W.PN.CRS1 ---
Today's Communication / Plan
-
Full liquid diet
No plans for surgery
Assessment/Plan
-
59-year-old female with PMH of rheumatoid arthritis and lupus (on 2 Biologics), CVA, HTN, asthma, TED (on CPAP), who presents with abdominal pain and was found to have diverticulitis with microperforation, being treated nonoperatively
AFVSS
WBC 6.6, vitals normal
�Acute diverticulitis with microperforation, not improving or worsening
�Advance diet to full liquid diet given improvement. Okay to DC IV fluids when tolerating diet.
�No need for repeat CT today; no hemodynamic instability or worsening abdominal pain, continue nonoperative measures
�Continue IV antibiotics, recommend switching to IV ertapenem or IV Levaquin/Flagyl
�Continue pain control with Tylenol and Dilaudid as needed
�Continue DVT PPx with subQ heparin, consider switching to Lovenox due to weight
�Encourage OOB/IS
�Appreciate hospitalist
Subjective Data
Subjective Data
Date of Service: December 19, 2024
Patient states she is having bowel movements. She is intermittent abdominal pain that waxes and wanes in nature. She currently says she has a right lower quadrant cramp. She denies nausea or vomiting.
Objective Data
-
Vital Signs
Temp Pulse Resp BP Pulse Ox
97.6 F 97 13 142/82 93
12/18/24 23:39 12/19/24 08:15 12/19/24 08:15 12/19/24 08:15 12/19/24 09:04
Intake & Output
12/18/24 12/19/24 12/20/24
06:59 06:59 06:59
Intake Total 1780 / 1780 1500 / 1500
Balance 1780 / 1780 1500 / 1500
Intake:
Oral fluids 1280 / 1280
IV fluids (Total) 500 / 500 1500 / 1500
Other:
Number of approximated MODERATE 4 3
amounts of urine
Lab Results
12/19/24 05:12
12/19/24 05:12
Physical Exam
-
General: No Acute Distress and AOx3
Abdomen: Soft, Non Distended and Tender (Mild right lower quadrant)
Skin: Warm and Dry
[2024-12-19] MEDS: INVANZ 60 MG IV (13:16)
[2024-12-19] MEDS: TYLENOL 650 MG PO (13:36)
--- NOTE | 2024-12-19 13:59 | W.PN.HOSP.TC ---
Today's Communication/Plan
-
cld - can dc ivf if tolerating
cont abx for now
Assessment / Plan
Assessment / Plan
Physical Exam
General: Other (59y F in mild distress due to abdominal pain.Improved from yesterday)
HEENT: Moist mucous membranes and PERRLA
Respiratory: Clear; No Wheezes, Rales or Rhonchi
Cardiac: S1/S2 and Regular Rhythm; No Murmur
GI: Soft, Non Distended and Other (Diffusely / mildly tender without rebound / guarding. Improved from yest although still present. Pos BS.)
Musculoskeletal: No Clubbing, No Cyanosis and No Edema
Neuro: AO x 3
A/P: Patient is a 59y F with PMH significant for RA / Lupus on chronic immunosuppressants who presents to ED complaining of abdominal pain x several days.
Acute Sigmoid Diverticulitis
- Admit for further evaluation and treatment.
- IV abx, IVFs, pain control, etc.
- Colorectal Surgery evaluation.
-trial CLD
-Can attempt to switch to ertapenem although zosyn usually provides good coverage
- Follow for clinical improvement. - If no improvement - will need colectomy with colostomy in setting of exam findings and use of Biologics
Benign Hypertension
- Elevated BP in the ED likely in part due to pain / discomfort.
- Pursue pain control as noted above.
- IV hydralazine as needed for very high BP.
- bp under control
Rheumatoid Arthritis
Lupus
- Stable. On outpatient infusions / injections.
- Continue current Plaquenil.
- Follow for any changes.
Asthma
- Stable. No acute exacerbation.
Obesity due to excess calories
- Affects all aspects of care.
- Encourage healthy diet and increased activity with goal of weight loss.
DVT Prophylaxis: HSQ
Code Status: Full
Anticipated Discharge: 24 - 48 hours
Subjective/Interval History
-
Date of Service: December 19, 2024
feels somewhat better
Objective Data
-
Labs:
Laboratory Results
12/19/24
05:12
WBC 6.6
Hgb 13.6
Hct 39.8
Plt Count 177
Sodium 137
Potassium 3.9
Chloride 105
Carbon Dioxide 21 L
BUN 13
Creatinine 0.6
Glucose 67 L
Calcium 8.6
Total Bilirubin 1.0
AST 23
ALT 20
Alkaline Phosphatase 69
Vital Signs:
Vital Signs
Temp Pulse Resp BP Pulse Ox
97.6 F 97 13 142/82 93
12/18/24 23:39 12/19/24 08:15 12/19/24 08:15 12/19/24 08:15 12/19/24 09:04
I&O
12/18/24 12/19/24 12/20/24
06:59 06:59 06:59
Intake Total 1780 / 1780 1500 / 1500
Balance 1780 / 1780 1500 / 1500
Review of Systems
-
History Source: Patient
All other systems: Not reviewed unless documented
Data Reviewed
-
CT Scan: Report Reviewed by me
Labs: Labs Reviewed by me
[2024-12-19 15:04] VITALS: BP 159/88
[2024-12-19] MEDS: SINGULAIR 10 MG PO (17:14)
[2024-12-19] MEDS: LIPITOR 40 MG PO (17:14)
[2024-12-19] MEDS: DILAUDID 0.5 MG IV (22:18)
[2024-12-19 22:43] VITALS: BP 156/83
[2024-12-20 05:12] LABS: Hematocrit 40.4 % (37.0-47.0); Mean Corp Hgb Conc. 34.7 g/dL (33.0-37.0); Mean Corpuscular Volume 92.4 fL (81.0-99.0); Mean Platelet Volume 8.7 fL (7.4-10.4); Platelet Count 197 10^3/uL (130-400); Red Blood Cell Count 4.37 10^6/uL (4.20-5.40); Red Cell Dist. Width 12.7 % (11.5-14.5); White Blood Cell Count 4.9 10^3/uL (4.8-10.8)
[2024-12-20 05:32] LABS: ALT (SGPT) 21 U/L (0-35); AST (SGOT) 25 U/L (14-36); Albumin 4.1 g/dl (3.5-5.0); Alkaline Phosphatase 69 U/L (38-126); Blood Urea Nitrogen 8 mg/dl (7-17); Calcium 8.7 mg/dl (8.4-10.2); Carbon Dioxide 25 mmol/L (22-30); Chloride 107 mmol/L (98-107); Estimated Creatinine Clearance 117 ml/min; Glucose 114 mg/dl (70-99); Sodium 140 mmol/L (135-145); Total Bilirubin 0.8 mg/dl (0.2-1.3); Total Protein 6.6 g/dl (6.3-8.2); eGFR > 60.00
[2024-12-20 08:16] VITALS: BP 157/82
[2024-12-20] MEDS: PLAQUENIL 400 MG PO (08:30)
[2024-12-20] MEDS: LOW STRENGTH ASPIRIN 81 MG PO (08:30)
[2024-12-20] MEDS: HEPARIN 5000 UNITS SC ×2 (08:31→20:27)
[2024-12-20] MEDS: TIMOPTIC 0.5% OPHTHALMIC SOLUTION 1 DROP BOTH EYES ×2 (08:33→20:30)
[2024-12-20] MEDS: TYLENOL 650 MG PO (10:24)
--- NOTE | 2024-12-20 13:39 | W.PN.CRS1 ---
Addendum entered and electronically signed by Coleman Ordonez MD 12/20/24 19:44:
I saw and examined the patient.
The ELECTRIC MOTOR ASSEMBLER's note was reviewed and I agree with the note.
Original Note:
Today's Communication / Plan
-
LRD
check UA
Assessment/Plan
-
59-year-old female with PMH of rheumatoid arthritis and lupus (on 2 Biologics), CVA, HTN, asthma, TED (on CPAP), who presents with abdominal pain and was found to have diverticulitis with microperforation, being treated nonoperatively
AFVSS
No leukocytosis
Pain present but exam improving
Voiding symptoms with c/o pressure/frequency likely d/t pressure from colonic inflammatory process and proximity to bladder but will r/o UTI
-Check UA
-Advance to LRD
-Continue current ABX
�Continue pain control with Tylenol and Dilaudid as needed
�Continue DVT PPx with subQ heparin, consider switching to Lovenox due to weight
�Encourage OOB/IS
�Appreciate hospitalist
�No hemodynamic instability or worsening abdominal pain, exam improving, continue nonoperative measures
Subjective Data
Subjective Data
Date of Service: December 20, 2024
Patient seen and examined at bedside with Dr. Ordonez. Pain slowly improving but still requiring narcotic for relief especially at night. Denies n/v. Tolerating diet and is hungry. Passing some diarrhea. Pressure with voiding and voiding frequency.
Objective Data
-
Vital Signs
Temp Pulse Resp BP Pulse Ox
98.2 F 87 19 157/82 95
12/20/24 08:16 12/20/24 08:16 12/20/24 08:16 12/20/24 08:16 12/20/24 08:18
Intake & Output
12/19/24 12/20/24 12/21/24
06:59 06:59 06:59
Intake Total 1500 / 1500 1800 / 1800
Balance 1500 / 1500 1800 / 1800
Intake:
Oral fluids 1800 / 1800
IV fluids (Total) 1500 / 1500
Other:
Number of approximated MODERATE 3 2
amounts of urine
Lab Results
12/20/24 04:56
12/20/24 04:56
Physical Exam
-
General: No Acute Distress and AOx3
Abdomen: Soft, Non Distended and Tender (Mild to mod to right lower quadrant and mild to left)
Skin: Warm and Dry
[2024-12-20] MEDS: INVANZ 60 MG IV (13:50)
--- NOTE | 2024-12-20 14:29 | W.PN.HOSP.TC ---
Today's Communication/Plan
-
lrd
bladder scan with <50cc
Assessment / Plan
Assessment / Plan
Physical Exam
General: Other (59y F in mild distress due to abdominal pain.Improved from yesterday)
HEENT: Moist mucous membranes and PERRLA
Respiratory: Clear; No Wheezes, Rales or Rhonchi
Cardiac: S1/S2 and Regular Rhythm; No Murmur
GI: Soft, Non Distended and Other (Diffusely / mildly tender without rebound / guarding. Improved from yest although still present. Pos BS.)
Musculoskeletal: No Clubbing, No Cyanosis and No Edema
Neuro: AO x 3
A/P: Patient is a 59y F with PMH significant for RA / Lupus on chronic immunosuppressants who presents to ED complaining of abdominal pain x several days.
Acute Sigmoid Diverticulitis
- Admit for further evaluation and treatment.
- IV abx, IVFs, pain control, etc.
- Colorectal Surgery evaluation.
-adv to lrd
-Can attempt to switch to ertapenem although zosyn usually provides good coverage
- Follow for clinical improvement. - If no improvement - will need colectomy with colostomy in setting of exam findings and use of Biologics
Benign Hypertension
- Elevated BP in the ED likely in part due to pain / discomfort.
- Pursue pain control as noted above.
- IV hydralazine as needed for very high BP.
- bp under control
Rheumatoid Arthritis
Lupus
- Stable. On outpatient infusions / injections.
- Continue current Plaquenil.
- Follow for any changes.
Asthma
- Stable. No acute exacerbation.
Obesity due to excess calories
- Affects all aspects of care.
- Encourage healthy diet and increased activity with goal of weight loss.
DVT Prophylaxis: HSQ
Code Status: Full
Anticipated Discharge: Within 24 hours
Subjective/Interval History
-
Date of Service: December 20, 2024
no acute events
Objective Data
-
Labs:
Laboratory Results
12/20/24
04:56
WBC 4.9
Hgb 14.0
Hct 40.4
Plt Count 197
Sodium 140
Potassium 4.0
Chloride 107
Carbon Dioxide 25
BUN 8
Creatinine 0.6
Glucose 114 H
Calcium 8.7
Total Bilirubin 0.8
AST 25
ALT 21
Alkaline Phosphatase 69
Vital Signs:
Vital Signs
Temp Pulse Resp BP Pulse Ox
98.2 F 87 19 157/82 95
12/20/24 08:16 12/20/24 08:16 12/20/24 08:16 12/20/24 08:16 12/20/24 08:18
I&O
12/19/24 12/20/24 12/21/24
06:59 06:59 06:59
Intake Total 1500 / 1500 1800 / 1800
Balance 1500 / 1500 1800 / 1800
Review of Systems
-
History Source: Patient
All other systems: Not reviewed unless documented
Physical Exam
-
General: Other
Data Reviewed
-
CT Scan: Report Reviewed by me
Labs: Labs Reviewed by me
[2024-12-20 15:31] VITALS: BP 128/74
[2024-12-20] MEDS: LIPITOR 40 MG PO (17:08)
[2024-12-20] MEDS: SINGULAIR 10 MG PO (17:08)
[2024-12-20] MEDS: TYLENOL 1000 MG PO (17:08)
[2024-12-20] MEDS: VISBIOME 1 CAP PO (20:27)
[2024-12-20 20:41] LABS: Urine Albumin 1+ (Neg - Trace); Urine Bilirubin Negative (Negative); Urine Character Clear (Clear); Urine Color Yellow; Urine Glucose Negative (Negative); Urine Ketone Negative (Negative); Urine Leukocyte Negative (Negative); Urine Nitrite Negative (Negative); Urine Occult Blood Negative (Negative); Urine Specific Gravity 1.025 (<1.030); Urine Urobilinogen Negative (Neg - 1+)
[2024-12-20 21:33] LABS: Urine Red Blood Cell 0-2 /HPF (0-2); Urine Squamous Cell 21-25 /LPF (Few)
[2024-12-20 23:00] VITALS: BP 134/82
[2024-12-21] MEDS: TYLENOL PO (03:15)
[2024-12-21 08:07] LABS: Hematocrit 43.3 % (37.0-47.0); Hemoglobin 15.1 g/dL (12.0-16.0); Mean Corp Hgb Conc. 34.9 g/dL (33.0-37.0); Mean Corpuscular Hgb 32.3 pg (27.0-31.0); Mean Corpuscular Volume 92.5 fL (81.0-99.0); Mean Platelet Volume 8.4 fL (7.4-10.4); Platelet Count 220 10^3/uL (130-400); Red Blood Cell Count 4.68 10^6/uL (4.20-5.40); Red Cell Dist. Width 12.8 % (11.5-14.5); White Blood Cell Count 5.8 10^3/uL (4.8-10.8)
[2024-12-21 08:09] VITALS: BP 135/104
[2024-12-21 08:21] LABS: ALT (SGPT) 30 U/L (0-35); AST (SGOT) 34 U/L (14-36); Albumin 4.6 g/dl (3.5-5.0); Alkaline Phosphatase 67 U/L (38-126); Blood Urea Nitrogen 10 mg/dl (7-17); Calcium 9.2 mg/dl (8.4-10.2); Carbon Dioxide 28 mmol/L (22-30); Chloride 105 mmol/L (98-107); Estimated Creatinine Clearance 101 ml/min; Glucose 116 mg/dl (70-99); Potassium 4.1 mmol/L (3.5-5.1); Sodium 143 mmol/L (135-145); Total Bilirubin 0.7 mg/dl (0.2-1.3); Total Protein 7.2 g/dl (6.3-8.2); eGFR > 60.00
[2024-12-21] MEDS: HEPARIN 5000 UNITS SC (08:24)
[2024-12-21] MEDS: LOW STRENGTH ASPIRIN 81 MG PO (08:24)
[2024-12-21] MEDS: VISBIOME 1 CAP PO (08:24)
[2024-12-21] MEDS: TIMOPTIC 0.5% OPHTHALMIC SOLUTION 1 DROP BOTH EYES (08:26)
[2024-12-21] MEDS: PLAQUENIL 400 MG PO (08:26)
[2024-12-21] MEDS: TYLENOL 1000 MG PO (09:49)
--- NOTE | 2024-12-21 11:44 | W.PN.HOSP.TC ---
Addendum entered and electronically signed by Primitivo York MD 12/21/24 15:39:
[id number]
Addendum entered and electronically signed by Primitivo York MD 12/21/24 11:50:
Augmentin* for additional 10 day course to complete 14 day course total
Original Note:
Today's Communication/Plan
-
Augmentin and Flagyl for additional 10-day course to complete 14 days total
Educated on coming back to the hospital for recurrent, worsening symptoms
Continue low residue diet
Follow-up colorectal surgery, PCP outpatient
Follow-up CBC, BMP outpatient
Assessment / Plan
Assessment / Plan
Physical Exam
General: Other (59y F in mild distress due to abdominal pain.Improved from yesterday)
HEENT: Moist mucous membranes and PERRLA
Respiratory: Clear; No Wheezes, Rales or Rhonchi
Cardiac: S1/S2 and Regular Rhythm; No Murmur
GI: Soft, Non Distended and Other (Diffusely / mildly tender without rebound / guarding. Improved from yest although still present. Pos BS.)
Musculoskeletal: No Clubbing, No Cyanosis and No Edema
Neuro: AO x 3
A/P: Patient is a 59y F with PMH significant for RA / Lupus on chronic immunosuppressants who presents to ED complaining of abdominal pain x several days.
Acute Sigmoid Diverticulitis
- Admit for further evaluation and treatment.
- IV abx, IVFs, pain control, etc.
- Colorectal Surgery evaluation.
-Tolerating low residue diet, continue for 2 to 3 weeks at least
-Received Zosyn, ertapenem�continue Augmentin and Flagyl for 10 more days to complete 14-day course
�Follow-up colorectal surgery outpatient
Benign Hypertension
- Elevated BP in the ED likely in part due to pain / discomfort.
- Pursue pain control as noted above.
- bp under control
Rheumatoid Arthritis
Lupus
- Stable. On outpatient infusions / injections. Can hold during acute infection
- Continue current Plaquenil.
- Follow for any changes.
Asthma
- Stable. No acute exacerbation.
Obesity due to excess calories
- Affects all aspects of care.
- Encourage healthy diet and increased activity with goal of weight loss.
DVT Prophylaxis: HSQ
Code Status: Full
More than 30 minutes spent in discharge including
Final examination of the patient
Summarizing hospital stay
Instructions for continuing care to all relevant caregivers
Preparation of discharge records, prescriptions, and referral forms
Total time spent (37 in minutes):
Anticipated Discharge: Today
Subjective/Interval History
-
Date of Service: December 21, 2024
Feels better, tolerating low residue diet
Objective Data
-
Labs:
Laboratory Results
12/21/24
07:53
WBC 5.8
Hgb 15.1
Hct 43.3
Plt Count 220
Sodium 143
Potassium 4.1
Chloride 105
Carbon Dioxide 28
BUN 10
Creatinine 0.7
Glucose 116 H
Calcium 9.2
Total Bilirubin 0.7
AST 34
ALT 30
Alkaline Phosphatase 67
Vital Signs:
Vital Signs
Temp Pulse Resp BP Pulse Ox
98.6 F 78 21 135/104 96
12/21/24 08:09 12/21/24 08:09 12/21/24 08:09 12/21/24 08:09 12/21/24 11:30
I&O
12/20/24 12/21/24 12/22/24
06:59 06:59 06:59
Intake Total 1800 / 1800 2019
Output Total 40 / 40
Balance 1800 / 1800 1979
Review of Systems
-
History Source: Patient
All other systems: Not reviewed unless documented
Physical Exam
-
General: Other
Data Reviewed
-
CT Scan: Report Reviewed by me
Labs: Labs Reviewed by me
--- NOTE | 2024-12-21 11:47 | W.DS.TRANS ---
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
-
Discharge Instructions:
Discharge Diagnosis/Procedures diverticulitis with microperforation
Diet Low Fiber
Additional Diets Low residue diet for 2-3 weeks
Activity As tolerated
Blood Work cbc and bmp in 3-5 days with pcp
Instructions: Low-fiber diet
Stand-Alone Forms:
Changes to Home Medications: Yes
Discharge Medications:
DC Medications w/original date entered in [facility]
budesonide 0.5 mg/2 mL suspension for nebulization 0.5 mg inhalation R DAILYPRN PRN sob 02/26/23
montelukast 10 mg tablet 10 mg PO QPM asthma 02/26/23
aspirin 81 mg tablet 81 mg PO QPM Blood Clot Prevention/Tx 06/27/24
tocilizumab 200 mg/10 mL (20 mg/mL) intravenous solution (Actemra) 200 mg IV Q4W Rheumatoid arthritis 06/27/24
atorvastatin 40 mg tablet 40 mg PO HS High Cholesterol 12/16/24
benralizumab 10 mg/0.5 mL subcutaneous syringe (Fasenra) 1 mg SC Q8W asthma 12/16/24
folic acid 1 mg tablet 1 mg PO DAILY Supplement 12/16/24
gabapentin 300 mg capsule 600 mg PO HS Pain 12/16/24
hydroxychloroquine 200 mg tablet (Plaquenil) 400 mg PO DAILY RA 12/16/24
ipratropium 0.5 mg-albuterol 3 mg (2.5 mg base)/3 mL nebulization soln 3 ml inhalation QIDPRN PRN shortness of breath 12/16/24
timolol maleate 0.5 % eye drops 1 drp BOTH EYES BID Eye Condition 12/16/24
Lactobac/Bifidobac [Visbiome] 1 cap PO DAILY 14 days #14 caps 12/21/24
amoxicillin 875 mg-potassium clavulanate 125 mg tablet 1 tab PO Q12H 10 days #20 tabs 12/21/24
metronidazole 500 mg tablet 500 mg PO Q12H 10 days #20 tabs 12/21/24
Home Medication Changes
Lactobac/Bifidobac [Visbiome] 1 cap PO DAILY 14 days #14 caps 12/21/24
amoxicillin 875 mg-potassium clavulanate 125 mg tablet 1 tab PO Q12H 10 days #20 tabs 12/21/24
metronidazole 500 mg tablet 500 mg PO Q12H 10 days #20 tabs 12/21/24
Pending Results: No
--- NOTE | 2024-12-21 11:53 | W.PN.CRS1 ---
Addendum entered and electronically signed by Coleman Ordonez MD 12/21/24 15:22:
I saw and examined the patient.
The SCALP TREATMENT SPECIALIST's note was reviewed and I agree with the note.
Comment:
Tolerating diet, abdominal pain significantly improved, having loose/liquid stool. Discussed with hospitalist and okay for DC from colorectal standpoint with antibiotics. Agreed on Augmentin. Follow-up with Dr. Montgomery in 2 weeks.
Original Note:
Today's Communication / Plan
-
dispo planning
Assessment/Plan
-
59-year-old female with PMH of rheumatoid arthritis and lupus (on 2 Biologics), CVA, HTN, asthma, TED (on CPAP), who presents with abdominal pain and was found to have diverticulitis with microperforation, being treated nonoperatively
AFVSS
No leukocytosis
Exam improving
UA neg
-Continue LRD
-Continue ABX, transition to PO upon d/c
�Analgesics prn
�Continue DVT PPx with subQ heparin, consider switching to Lovenox due to weight
�Encourage OOB/IS
�Appreciate hospitalist
Ok for d/c from CRS standpoint. Discussed abx management upon d/c with hospitalist and patient
Subjective Data
Subjective Data
Date of Service: December 21, 2024
Patient seen and examined at bedside with Dr. Ordonez. OOB to chair and notes pain is improved and ranging from 0-3. Feels ready to go home. Tolerating diet. Passing flatus and having some diarrhea as well. Feels discomfort when bladder is full in her
abdomen but not with urinating.
Objective Data
-
Vital Signs
Temp Pulse Resp BP Pulse Ox
98.6 F 78 21 135/104 96
12/21/24 08:09 12/21/24 08:09 12/21/24 08:09 12/21/24 08:09 12/21/24 11:30
Intake & Output
12/20/24 12/21/24 12/22/24
06:59 06:59 06:59
Intake Total 1800 / 1800 2019
Output Total 40 / 40
Balance 1800 / 1800 1979
Intake:
Oral fluids 1800 / 1800 1959
IV piggybacks
Output:
Urine, Voided
Other:
Number of approximated MODERATE 2 2
amounts of urine
Lab Results
12/21/24 07:53
12/21/24 07:53
Physical Exam
-
General: No Acute Distress and AOx3
Abdomen: Soft, Non Distended and Tender (minimal to lower abd)
Skin: Warm and Dry
[2024-12-21] MEDS: INVANZ 60 MG IV (12:59)
[2024-12-21 13:21] VITALS: BP 141/80
== END 2024-12-21 14:25 | disposition home or self-care (01) | DRG 392 ==
LOC: 3 WEST ACU 02:54
PROVIDERS: Physician Assistant Medical; Registered Nurse; Surgery; ADMITTING PHYSICIAN Hospitalist; ATTENDING PHYSICIAN Internal Medicine; CONSULT PHYSICIAN Surgery; EMERGENCY PHYSICIAN Student in an Organized Health Care Education/Training Program; FAMILY PHYSICIAN Nurse Practitioner
DX: K57.20 Diverticulitis of large intestine with perforation and abscess without bleeding (principal); Z68.42 Body mass index [BMI] 45.0-49.9, adult; D84.821 Immunodeficiency due to drugs; K59.00 Constipation, unspecified; M06.9 Rheumatoid arthritis, unspecified; M32.9 Systemic lupus erythematosus, unspecified; M79.7 Fibromyalgia; E66.09 Other obesity due to excess calories; G47.33 Obstructive sleep apnea (adult) (pediatric); I10 Essential (primary) hypertension; J45.909 Unspecified asthma, uncomplicated; I25.10 Atherosclerotic heart disease of native coronary artery without angina pectoris; K21.9 Gastro-esophageal reflux disease without esophagitis; Z96.653 Presence of artificial knee joint, bilateral; Z91.040 Latex allergy status; Z88.2 Allergy status to sulfonamides; Z88.1 Allergy status to other antibiotic agents; Z79.82 Long term (current) use of aspirin; Z86.73 Personal history of transient ischemic attack (TIA), and cerebral infarction without residual deficits; Z79.60 Long term (current) use of unspecified immunomodulators and immunosuppressants
CPT/HCPCS: 74177; 80048; 80053; 81003; 81015; 83690; 84484; 85025; 85027; 86140; 93005; 96374; 96375; 99285; J1335; J2997; Q9967

== ENCOUNTER → 2025-01-09 07:30 | Outpatient (REF) | payer MEDICARE, OTHER, SELFPAY ==
[2025-01-09 08:59] LABS: % Immature Granulocytes 0.3 % (0-0.5); % Lymphocytes 40.6 % (20.5-51.1); % Monocytes 13.7 % (1.7-9.3); % Neutrophils 45.4 % (42.2-75.2); Absolute Lymphocytes 1.2 10^3/uL (1.2-3.4); Absolute Monocytes 0.4 10^3/uL (0.1-0.6); Absolute Neutrophils 1.3 10^3/uL (1.4-6.5); Hematocrit 43.9 % (37.0-47.0); Hemoglobin 14.3 g/dL (12.0-16.0); Mean Corp Hgb Conc. 32.6 g/dL (33.0-37.0); Mean Corpuscular Hgb 31.6 pg (27.0-31.0); Mean Corpuscular Volume 97.1 fL (81.0-99.0); Mean Platelet Volume 9.6 fL (7.4-10.4); Nucleated Red Blood Cells % 0 %; Platelet Count 232 10^3/uL (130-400); Red Blood Cell Count 4.52 10^6/uL (4.20-5.40); Red Cell Dist. Width 12.9 % (11.5-14.5); White Blood Cell Count 2.9 10^3/uL (4.8-10.8)
[2025-01-09 09:46] LABS: Blood Urea Nitrogen 15 mg/dl (7-17); Carbon Dioxide 25 mmol/L (22-30); Chloride 107 mmol/L (98-107); Glucose 95 mg/dl (70-99); Potassium 4.2 mmol/L (3.5-5.1); Sodium 140 mmol/L (135-145); eGFR > 60.00
== END ==
LOC: REG 07:30
PROVIDERS: ATTENDING PHYSICIAN Surgery; FAMILY PHYSICIAN Nurse Practitioner
DX: K57.92 Diverticulitis of intestine, part unspecified, without perforation or abscess without bleeding (principal)
CPT/HCPCS: 36415; 80048; 85025

== ENCOUNTER 2025-01-21 06:02 | Emergency (ER) | payer MEDICARE, OTHER, SELFPAY ==
[2025-01-21 06:04] VITALS: BP 150/88
[2025-01-21 06:15] VITALS: BMI 46.0
[2025-01-21 07:10] LABS: % Basophils 0.2 % (0-2); % Immature Granulocytes 0.2 % (0-0.5); % Lymphocytes 31.2 % (20.5-51.1); % Monocytes 12.6 % (1.7-9.3); % Neutrophils 55.8 % (42.2-75.2); Absolute Lymphocytes 1.3 10^3/uL (1.2-3.4); Absolute Monocytes 0.5 10^3/uL (0.1-0.6); Absolute Neutrophils 2.4 10^3/uL (1.4-6.5); Hematocrit 40.3 % (37.0-47.0); Hemoglobin 13.3 g/dL (12.0-16.0); Mean Corpuscular Hgb 31.7 pg (27.0-31.0); Mean Corpuscular Volume 96.2 fL (81.0-99.0); Mean Platelet Volume 9.1 fL (7.4-10.4); Nucleated Red Blood Cells % 0 %; Platelet Count 207 10^3/uL (130-400); Red Blood Cell Count 4.19 10^6/uL (4.20-5.40); Red Cell Dist. Width 12.9 % (11.5-14.5); White Blood Cell Count 4.3 10^3/uL (4.8-10.8)
--- NOTE | 2025-01-21 07:19 | ED.GENMED ---
History of Present Illness
General
Chief Complaint: Abdominal Pain
Time Seen by Provider: 01/21/25 07:09
History of Present Illness
History of Present Illness:
59-year-old female presents to the emergency department for evaluation of persistent lower abdominal discomfort. She was hospitalized here approximately 6 weeks ago for acute diverticulitis complicated by microperforation. She was treated with
antibiotics but reports that her abdominal discomfort, while markedly improved, never fully resolved. She saw her colorectal surgeon yesterday who advised ED evaluation for imaging. Patient has a history of rheumatoid arthritis and lupus and
receives tocilizumab infusions however has not received this since November. No fevers, chills, sweats, nausea, or vomiting. She reports significant increased discomfort postprandially
Past History
Past History
ED Past Medical History: Asthma, GERD, HTN and Other (Fibromyalgia, elevated heart rate, GERD)
ED Past Surgical History: Other (Cellulitis release, right and left)
Social History
Tobacco: Non-smoker
Alcohol: None
Drug: None
Personal:
Living: with family
Review of Systems
Review of Systems
Allergies reviewed?: Yes
All Other Systems: ROS reviewed and negative except as documented in HPI and ROS
Phy Exam
Physical Exam
Physical Exam:
GEN: Well appearing, NAD, WDWN
HEENT: Oral mucosa moist, no scleral icterus
Cardiac: Regular rate and rhythm, no murmurs
Lung: No respiratory distress, no tachypnea
Abdomen: Soft, mildly tender to the periumbilical and suprapubic space, no rigidity
MSK: No gross deformity or injuries
Skin: Good color, no pallor or jaundice, no rashes
Neuro: AO x3, moves all extremities freely
Psych: Calm, cooperative
Sepsis
Sepsis Screening
Sepsis Assessment: Sepsis Ruled Out
Sepsis Screen
Sepsis Screen: Sepsis Ruled Out
Date: 01/21/25
Time: 13:12
Course
Orders/Labs/Results
Orders:
Orders
01/21/25 06:58
CMP [Comprehensive Metabolic Panel] Urgent
Complete Blood Count/With Diff Urgent
Lipase Urgent
01/21/25 07:18
CT Abd/Pel (IV only)-DH only Urgent
Comment:
Reason For Exam: lower abd pain, recent divertic
01/21/25 09:20
Electrocardiogram (*1) Urgent
Reason for Study: QTc Monitoring
INFECTIOUS DISEASE CONSULT Urgent
Consulting Provider: Ijeoma Garcia
Was physician already notified: Yes
EKG- Treatment ONCE
01/21/25 10:46
Piperacillin/Tazo 3.375 Gram [Zosyn] 3.375 gram in 50 ml IV NOW
Abnormal Lab Results
01/21/25
06:58
WBC 4.3 L 10^3/uL
(4.8-10.8)
RBC 4.19 L 10^6/uL
(4.20-5.40)
MCH 31.7 H pg
(27.0-31.0)
Monocytes % 12.6 H %
(1.7-9.3)
Chloride 109 H mmol/L
(98-107)
BUN 21 H mg/dl
(7-17)
Glucose 101 H mg/dl
(70-99)
Total Protein 6.0 L g/dl
(6.3-8.2)
Lipase 1876 H* U/L
(23-300)
01/21/25 06:58
01/21/25 06:58
Vital Signs
Initial and Last Documented VS:
Initial Vital Signs
Temp Pulse Resp BP Pulse Ox
98 F 86 22 150/88 97
01/21/25 06:04 01/21/25 06:04 01/21/25 06:04 01/21/25 06:04 01/21/25 06:04
Last Documented Vital Signs
Temp Pulse Resp BP Pulse Ox
98 F 74 19 119/73 97
01/21/25 06:04 01/21/25 10:45 01/21/25 10:45 01/21/25 10:00 01/21/25 10:45
MDM/Problems Addressed
MDM/Problems Addressed:
Interestingly the patient was found to have an elevated lipase despite quite mild abdominal pain. She is on Actemra which could cause pancreatitis however has not had her dose in at least 6 weeks. Her diverticulitis seems improved by imaging
however remains present which is concerning. I discussed the case with colorectal surgery who is agreeable to the patient being discharged on antibiotics per her request infectious disease weigh in for medication options. ID consulted formally on
the patient the bedside and has recommended Augmentin out of concern for QT prolongation in the setting of her hydroxychloroquine use.
*Critical Care Note
Total Time (30-74mins, 75-104mins- exclusive of procedures): Not Applicable
Update Note
Update Note:
0909: Case discussed with Dr. Montgomery from colorectal surgery. He requests infectious disease and GI consultations before the patient is discharged given that she is on multiple Biologics with persistent disease
ED Attending Note
-
Portions of this chart may have been created with voice recognition software.� Occasional wrong word or��sound alike� substitutions may have occurred due to the inherent limitations of voice recognition software.
Discharge Plan
Departure
Patient Disposition: Home (Routine Discharge)
Date of Disposition: 01/21/25
Time of Disposition: 11:04
Patient with high blood pressure during this ER visit?: No
Discharge Problem:
Diverticulitis, Pancreatitis
Instructions: Diverticulitis (DC), Clear Liquid Diet
Prescriptions:
New
amoxicillin-pot clavulanate 875-125 mg tablet
1 tab PO BID 14 Days Qty: 27 0RF
No Action
budesonide 0.5 mg/2 mL Suspension For Nebulization
0.5 mg INHALATION R DAILYPRN PRN (Reason: sob)
montelukast 10 mg Tablet
10 mg PO QPM
Actemra 200 mg/10 mL (20 mg/mL) Solution
200 mg IV Q4W
hydroxychloroquine [Plaquenil] 200 mg Tablet
400 mg PO DAILY
atorvastatin 40 mg tablet
40 mg PO HS
ipratropium-albuterol 0.5 mg-3 mg(2.5 mg base)/3 mL solution for nebulization
3 ml INHALATION QIDPRN PRN (Reason: shortness of breath)
gabapentin 300 mg capsule
300 mg PO HS
folic acid 1 mg tablet
1 mg PO DAILY
timolol maleate 0.5 % drops
1 drp BOTH EYES BID
Fasenra 10 mg/0.5 mL Syringe
10 mg SC Q8W
azithromycin 250 mg Tablet
250 mg PO MOWEFR
aspirin 81 mg Tablet,Delayed Release (Dr/Ec)
81 mg PO DAILY
lidocaine-prilocaine 2.5-2.5 % Cream
1 applic TOPICAL DAILYPRN PRN (Reason: port)
acetaminophen [Tylenol Extended Release] 650 mg Tablet Extended Release
1,300 mg PO DAILY
Referrals:
North Montgomery MD [Active] -
Chioma Levy CRNP [Family Provider] -
Activity Restrictions/Additional Instructions:
Clear liquids ONLY for 2 days
Repeat lipase blood test in 48 hours
Follow up with colorectal surgery
Interventions
Interventions:
*Risk Screen - Suicide Last Done: 01/21/25 06:04
*General Assessment Last Done: 01/21/25 06:29
*Neglect/Abuse Screening Last Done: 01/21/25 06:04
*ED- Fall Risk Assessment Last Done: 01/21/25 06:15
*ED COVID-19 Vaccine History Last Done: 01/21/25 06:15
*Nursing Disposition Last Done: 01/21/25 12:06
ZA-Nzzflf-Ihcigiccin Assessment Last Done: 01/21/25 06:15
Discharge Date and Time
Discharge Date/Time: 01/21/25 12:07
Print Language: SYRIAN
[2025-01-21 07:20] LABS: ALT (SGPT) 22 U/L (0-35); AST (SGOT) 19 U/L (14-36); Albumin 3.6 g/dl (3.5-5.0); Alkaline Phosphatase 70 U/L (38-126); Blood Urea Nitrogen 21 mg/dl (7-17); Calcium 9.3 mg/dl (8.4-10.2); Carbon Dioxide 26 mmol/L (22-30); Chloride 109 mmol/L (98-107); Estimated Creatinine Clearance 88 ml/min; Glucose 101 mg/dl (70-99); Lipase 1876 U/L (23-300); Sodium 139 mmol/L (135-145); Total Bilirubin 0.7 mg/dl (0.2-1.3); eGFR > 60.00
[2025-01-21 08:00] VITALS: BP 113/80
[2025-01-21 09:03] VITALS: BP 133/79
--- NOTE | 2025-01-21 09:22 | CON.ID ---
Consultation
-
Date/Time Consultation Requested: 01/21/25 9:17
Date/Time Consultation Performed: 01/21/25 9:22
Requesting Provider: North
Performing Provider: Dr Garcia
Reason for Consultation: persistent diverticulitis
Chief Complaint / Past History
Chief Complaint
abdominal pain
History of Present Illness
Ms Villaseñor is a 59 year old female with history notable for SLE/RA on Actemra and Fasenra and also class III obesity. Also with history of idiopathic pancreatitis several years ago despite an aggressive workup with negative endoscopy and prior to
starting actemra. Her recent history is notable in that she was found to have sigmoid diverticulitis with microperforation on CT 12/13/2024. She was admitted 12/16/2024 through 12/21/2024 and attended by medicine service - she initally prescribed zosyn
later switched to ertapenem and finally transition to Augmentin and Flagyl for a 14 day total course which would have complete 3 weeks ago. She presented for follow up with Dr Montgomery on 01/20 she tells me she was complaining of 3 out of 10 abdominal
pain colicky, no clear relation to foods - starting in the right lumbar region and radiating to the groin. Note her stated history No fevers, chills or blood in the stool. She as initially on a low residue diet but has been increasing her fiber
intake. She was referred to the ER for imaging given relapse of symptoms.
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
She also has a history of diverticular hemorrhage in 2022 treated medically. Last colonoscopy 04/29/[address] Riggs showed diverticulosis of the sigmoid.
Since arrival here she has been afebrile, bp overall stable, wbc 4.3, hgb 13, plt 207, no L shift, eos not present, cr 0.8, lipase 1870,
Past History
Additional Past Medical History:
Asthma, GERD, HTN and Other (Fibromyalgia, elevated heart rate, GERD)
Additional Past Surgical History:
port placement
Allergy History:
cefadroxil [From Duricef] Allergy (Verified 12/15/24 17:09)
Rash
celecoxib [From Celebrex] Allergy (Verified 12/15/24 17:09)
Rash
latex Allergy (Verified 12/15/24 17:09)
Rash, itching
pollen extracts Allergy (Verified 12/15/24 17:09)
stuffy nose
Sulfa (Sulfonamide Antibiotics) Allergy (Verified 12/15/24 17:09)
Rash
sulfur dioxide Allergy (Verified 12/15/24 17:09)
Rash
Medications Reviewed: Yes
Social History
Tobacco: Non-Smoker
Alcohol: None
Drug: None
Family History
Family History: Not Pertinent
Review of Systems
Review of Systems
General: Negative Fever or Chills
All systems: All other systems were reviewed and were negative
Vital Signs
Temp Pulse Resp BP Pulse Ox
98 F 73 16 113/80 95
01/21/25 06:04 01/21/25 08:00 01/21/25 08:00 01/21/25 08:00 01/21/25 08:00
Physical Exam
Physical Exam
Constitutional: No Acute Distress
Cardiovascular: Regular Rate and S1/S2; Negative Murmur or Rub
Pulmonary: Clear and Symmetric; Negative Wheezes, Rales or Rhonchi
Gastrointestinal: Soft, Non Tender (with deep palpation), Non Distended and Normal Bowel Sounds
Skin: Warm and Dry; Negative Rash or Jaundice
Lines: Port (no erythema, warmth, tenderness or drainage)
Lab / Diagnostic Study Results
01/21/25 06:58
01/21/25 06:58
Abs Immat Gran (auto) 0.0 10^3/uL (0-0.05) 01/21/25 06:58
Absolute Neuts (auto) 2.4 10^3/uL (1.4-6.5) 01/21/25 06:58
Absolute Lymphs (auto) 1.3 10^3/uL (1.2-3.4) 01/21/25 06:58
Absolute Monos (auto) 0.5 10^3/uL (0.1-0.6) 01/21/25 06:58
Absolute Basos (auto) 0.0 10^3/uL (0-0.2) 01/21/25 06:58
Immature Gran % 0.2 % (0-0.5) 01/21/25 06:58
Neutrophils % 55.8 % (42.2-75.2) 01/21/25 06:58
Lymphocytes % 31.2 % (20.5-51.1) 01/21/25 06:58
Monocytes % 12.6 % (1.7-9.3) H 01/21/25 06:58
Eosinophils % 0.0 % (0-6) 01/21/25 06:58
Basophils % 0.2 % (0-2) 01/21/25 06:58
Microbiology Results
Micro:
no prior cultures with MDROs on file here
Assessment / Plan
Recurrent Mild Diverticulitis
Class III obesity
Allergy to Sulfa
Long QTc 499
- give a dose of zosyn now then this evening can start a 14 day course of augmentin
- hold [employer] azithromycin and plaquenil for now
- if patient reports no improvement in intermittent, mild, colicky abdominal pain my sunday, then she will get a repeat EKG to reassess QTc outpatient and call me and we can consider oral vs IV alternatives
- follow up PRN
Elevated Lipase
- no current abdominal pain and CT without evidence of pancreatitis - doesnt meet criteria for pancreatitis currently in my opinion
- note actemra does have post marketing reports of causing pancreatitis
- defer further assessment/management to GI
[2025-01-21 10:00] VITALS: BP 119/73
[2025-01-21] MEDS: ZOSYN 50 IV (10:59)
== END 2025-01-21 12:07 | disposition home or self-care (01) ==
LOC: EMR 06:02
PROVIDERS: Student in an Organized Health Care Education/Training Program; CONSULT PHYSICIAN Student in an Organized Health Care Education/Training Program; EMERGENCY PHYSICIAN Emergency Medicine; FAMILY PHYSICIAN Nurse Practitioner
DX: K57.32 Diverticulitis of large intestine without perforation or abscess without bleeding (principal); J45.909 Unspecified asthma, uncomplicated; K21.9 Gastro-esophageal reflux disease without esophagitis; I10 Essential (primary) hypertension; M06.9 Rheumatoid arthritis, unspecified; M32.9 Systemic lupus erythematosus, unspecified; M79.7 Fibromyalgia; E66.813 Obesity, class 3
CPT/HCPCS: 99284; 96365; 74177; 80053; 83690; 85025; 93005; Q9967

== ENCOUNTER → 2025-01-24 07:21 | Outpatient (REF) | payer MEDICARE, OTHER, SELFPAY ==
[2025-01-24 08:40] LABS: % Immature Granulocytes 0.3 % (0-0.5); % Lymphocytes 22.2 % (20.5-51.1); % Monocytes 10.4 % (1.7-9.3); % Neutrophils 67.1 % (42.2-75.2); Absolute Lymphocytes 0.8 10^3/uL (1.2-3.4); Absolute Monocytes 0.4 10^3/uL (0.1-0.6); Absolute Neutrophils 2.5 10^3/uL (1.4-6.5); Hematocrit 41.4 % (37.0-47.0); Hemoglobin 14.2 g/dL (12.0-16.0); Mean Corp Hgb Conc. 34.3 g/dL (33.0-37.0); Mean Corpuscular Hgb 32.3 pg (27.0-31.0); Mean Corpuscular Volume 94.3 fL (81.0-99.0); Mean Platelet Volume 8.8 fL (7.4-10.4); Nucleated Red Blood Cells % 0 %; Platelet Count 214 10^3/uL (130-400); Red Blood Cell Count 4.39 10^6/uL (4.20-5.40); Red Cell Dist. Width 12.8 % (11.5-14.5); White Blood Cell Count 3.7 10^3/uL (4.8-10.8)
[2025-01-24 09:07] LABS: ALT (SGPT) 23 U/L (0-35); AST (SGOT) 25 U/L (14-36); Albumin 3.8 g/dl (3.5-5.0); Alkaline Phosphatase 90 U/L (38-126); Blood Urea Nitrogen 10 mg/dl (7-17); Calcium 9.3 mg/dl (8.4-10.2); Carbon Dioxide 26 mmol/L (22-30); Chloride 107 mmol/L (98-107); Glucose 105 mg/dl (70-99); Lipase 253 U/L (23-300); Potassium 4.1 mmol/L (3.5-5.1); Sodium 140 mmol/L (135-145); Total Bilirubin 1.3 mg/dl (0.2-1.3); Total Protein 6.4 g/dl (6.3-8.2); eGFR > 60.00
[2025-01-24 09:14] LABS: Complement C3 125 mg/dl (88-165)
[2025-01-24 11:45] LABS: Erythrocyte Sed Rate 1 mm/hour (0-20)
[2025-01-26 22:59] LABS: ds-DNA Ab, IgG Reflex To Titer 3 IU (0-24)
== END ==
LOC: REG 07:21
PROVIDERS: ATTENDING PHYSICIAN Internal Medicine Rheumatology; FAMILY PHYSICIAN Internal Medicine; OTHER PHYSICIAN Specialist; OTHER PHYSICIAN Surgery; REFERRING PHYSICIAN Physician Assistant
DX: K92.2 Gastrointestinal hemorrhage, unspecified (principal)
CPT/HCPCS: 36415; 80053; 83690; 85025; 85652; 86140; 86160; 86225

== ENCOUNTER → 2025-02-03 07:03 | Outpatient (REF) | payer MEDICARE, OTHER, SELFPAY ==
[2025-02-03 08:21] LABS: % Lymphocytes 37.4 % (20.5-51.1); % Monocytes 11.6 % (1.7-9.3); Absolute Lymphocytes 1.3 10^3/uL (1.2-3.4); Absolute Monocytes 0.4 10^3/uL (0.1-0.6); Absolute Neutrophils 1.7 10^3/uL (1.4-6.5); Hemoglobin 13.1 g/dL (12.0-16.0); Mean Corp Hgb Conc. 34.5 g/dL (33.0-37.0); Mean Corpuscular Hgb 32.3 pg (27.0-31.0); Mean Corpuscular Volume 93.8 fL (81.0-99.0); Mean Platelet Volume 8.7 fL (7.4-10.4); Nucleated Red Blood Cells % 0 %; Platelet Count 263 10^3/uL (130-400); Red Blood Cell Count 4.05 10^6/uL (4.20-5.40); White Blood Cell Count 3.4 10^3/uL (4.8-10.8)
[2025-02-03 08:25] LABS: Urine Albumin 1+ (Neg - Trace); Urine Bilirubin Negative (Negative); Urine Character Clear (Clear); Urine Color Yellow; Urine Glucose Negative (Negative); Urine Ketone Negative (Negative); Urine Leukocyte 2+ (Negative); Urine Nitrite Negative (Negative); Urine Occult Blood Negative (Negative); Urine Specific Gravity 1.025 (<1.030); Urine Urobilinogen Negative (Neg - 1+)
[2025-02-03 08:29] LABS: Erythrocyte Sed Rate 12 mm/hour (0-20)
[2025-02-03 08:36] LABS: Urine Bacteria Moderate (Negative); Urine Mucus Moderate; Urine White Cell 26-30 /HPF (0-5)
[2025-02-03 08:57] LABS: ALT (SGPT) 22 U/L (0-35); AST (SGOT) 22 U/L (14-36); Alkaline Phosphatase 78 U/L (38-126); Blood Urea Nitrogen 21 mg/dl (7-17); Carbon Dioxide 24 mmol/L (22-30); Chloride 107 mmol/L (98-107); Glucose 99 mg/dl (70-99); HDL Cholesterol 55 mg/dl; LDL Cholesterol, Calculated 55 mg/dl; Potassium 3.9 mmol/L (3.5-5.1); Sodium 139 mmol/L (135-145); Total Bilirubin 0.8 mg/dl (0.2-1.3); Total Cholesterol 127 mg/dl (50-199); Total Protein 6.3 g/dl (6.3-8.2); Triglyceride 88 mg/dl (10-149); Very Low Density Lipoprotein 17 mg/dl (0-30); eGFR > 60.00
[2025-02-03 08:58] LABS: C-Reactive Protein < 5.00 mg/L (0.0-10.00)
[2025-02-03 09:07] LABS: Complement C3 123 mg/dl (88-165)
[2025-02-03 09:16] LABS: Vitamin D, 25-OH*** 45.5 ng/mL (30-80)
[2025-02-03 09:30] LABS: TSH 1.97 uIU/ml (0.47-4.68)
[2025-02-03 09:56] LABS: Urine Protein < 5 mg/dl
[2025-02-03 10:05] LABS: Folate > 20.0 ng/ml (2.76-20); Vitamin B12 527 pg/ml (239-931)
[2025-02-05 00:39] LABS: Beta-2-Glycoprotein I Ab. IgA <10 SAU (<=20)
[2025-02-05 00:59] LABS: ds-DNA Ab, IgG Reflex To Titer 3 IU (0-24)
[2025-02-05 01:18] LABS: ANA, IgG Reflex to HEp-2 None Detected (None Detected)
[2025-02-05 08:41] LABS: SSA 52 (Ro)(ENA) Ab, IgG 3 AU/mL (0-40); SSA 60 (Ro)(ENA) Ab, IgG 1 AU/mL (0-40); SSB (La)(ENA) Ab, IgG 1 AU/mL (0-40); Smith (ENA) Antibody, IgG 3 AU/mL (0-40)
[2025-02-05 15:15] LABS: Anti-Xa Qualitative Interp Not Performed (Not Present); Anticoagulant Med Neutralizati Not Performed (Not Performed); Hexagonal Phospholipid Confirm Not Performed s (<=7.9); Neutralized PTT-LA Ratio Not Performed (<=1.20); Neutralized dRVTT Screen Ratio Not Performed (<=1.20); PTT-LA Ratio 0.92 (<=1.20); Prothrombin Time 12.6 s (12.0-15.5); Thrombin Time Not Performed s (<=19.5); dRVTT 1.1 Mix Ratio Not Performed (<=1.20); dRVTT Confirmation Ratio Not Performed (<=1.20); dRVTT Screen Ratio 0.88 (<=1.20)
[2025-02-05 17:32] LABS: Cardiolipin IgA Antibody <10 APL (<=11); Cardiolipin IgM Antibody <10 MPL (<=12); Cardiolipin Igg Antibody <10 GPL (<=14)
== END ==
LOC: REG 07:03
PROVIDERS: ATTENDING PHYSICIAN Internal Medicine Rheumatology; FAMILY PHYSICIAN Nurse Practitioner; REFERRING PHYSICIAN Nuclear Medicine Nuclear Cardiology
DX: E55.9 Vitamin D deficiency, unspecified (principal); M06.09 Rheumatoid arthritis without rheumatoid factor, multiple sites; M25.511 Pain in right shoulder; M32.9 Systemic lupus erythematosus, unspecified; M62.81 Muscle weakness (generalized); M70.61 Trochanteric bursitis, right hip; M79.7 Fibromyalgia; Z51.81 Encounter for therapeutic drug level monitoring; Z86.73 Personal history of transient ischemic attack (TIA), and cerebral infarction without residual deficits
CPT/HCPCS: 36415; 80053; 80061; 81003; 81015; 82306; 82570; 82607; 82746; 84156; 84443; 85025; 85610; 85613; 85652; 85730; 86038; 86140; 86146; 86147; 86160; 86225; 86235

== ENCOUNTER 2025-04-15 08:58 | Outpatient (RCR) | payer MEDICARE, OTHER, SELFPAY ==
[2025-04-15 09:25] VITALS: BP 138/80
== END 2025-04-16 09:53 | disposition home or self-care (01) ==
LOC: OID 08:58
PROVIDERS: ATTENDING PHYSICIAN Nurse Practitioner
DX: M32.13 Lung involvement in systemic lupus erythematosus (principal); K57.92 Diverticulitis of intestine, part unspecified, without perforation or abscess without bleeding
CPT/HCPCS: 96523